=== PATIENT | female | born 1970 | race Caucasian/White ===

== ENCOUNTER 2017-09-14 10:12 | Inpatient (IN) | payer OTHER ==
[2017-09-14] MEDS ORDERED: LIDOCAINE 4% CR (13:36)
[2017-09-14] MEDS: SODIUM CHLORIDE 0.9% 1L BAG IV* (14:14)
[2017-09-14] MEDS: CEFEPIME 2GM/50 ML (PMX) 50 ML IVPB (14:14)
[2017-09-14] MEDS: ONDANSETRON 4 MG INJ IV ×2 (14:20→17:44)
[2017-09-14] MEDS: HYDROmorphONE 1 MG/ML SYG IV ×2 (14:20→17:44)
[2017-09-14 14:29] LABS: ADD UMIC YES; UR ASCORBIC ACID 20 mg/dL (NEGATIVE); UR BACTERIA FEW /HPF (NONE SEEN); UR BILIRUBIN (Dip) NEGATIVE (NEGATIVE); UR BLOOD (Dip) 1+ mg/dL (NEGATIVE); UR CLARITY SLIGHTLY CLOUDY (CLEAR); UR COLOR YELLOW (YELLOW); UR GLUCOSE (Dip) NEGATIVE (NEGATIVE); UR KETONES (Dip) TRACE mg/dL (NEGATIVE); UR LEUKOCYTE ESTERASE (Dip) NEGATIVE Leu/ul (NEGATIVE); UR MUCUS MODERATE /HPF (NONE SEEN); UR NITRITE (Dip) NEGATIVE (NEGATIVE); UR RBC 15 /HPF (0-5); UR RENAL EPITHELIAL CELL FEW /HPF (NONE SEEN); UR SPECIFIC GRAVITY (Dip) 1.015 (1.003-1.030); UR SQUAMOUS EPITHELIAL CELL FEW /HPF (FEW); UR TOTAL PROTEIN (Dip) 1+ mg/dl (NEGATIVE); UR UROBILINOGEN (Dip) NEGATIVE (NEGATIVE); UR WBC 5 /HPF (0-5)
[2017-09-14] MEDS: VANCOMYCIN 1 GM (PMX) 250 ML IVPB (14:35)
[2017-09-14 14:44] LABS: ALANINE AMINOTRANSFERASE 34 IU/L (13-69); ALBUMIN/GLOBULIN RATIO 1.29; ALKALINE PHOSPHATASE 114 IU/L (42-121); ANION GAP 17 (8-16); ASPARTATE AMINO TRANSFERASE 17 IU/L (15-46); BILIRUBIN,INDIRECT 0.4 mg/dl (0-1.1); BILIRUBIN,TOTAL 0.4 mg/dl (0.2-1.3); BLOOD UREA NITROGEN 8 mg/dl (7-20); CALCIUM 9.2 mg/dl (8.4-10.2); CARBON DIOXIDE 24 mmol/L (21-31); CHLORIDE 100 mmol/L (97-110); CREATININE 0.57 mg/dl (0.44-1.00); GLUCOSE 116 mg/dl (70-220); SODIUM 138 mmol/L (135-144); TOTAL PROTEIN 7.1 g/dl (6.1-8.1)
[2017-09-14 14:45] LABS: LACTIC ACID 1.4 mmol/L (0.5-2.0)
[2017-09-14 14:47] LABS: ABNORMAL IP MESSAGE 1; HEMATOCRIT 19.9 % (37.0-47.0); HEMOGLOBIN 7.2 g/dl (12.0-16.0); MEAN CORPUSCULAR HEMOGLOBIN 30.8 pg (29.0-33.0); MEAN CORPUSCULAR HGB CONC 36.2 g/dl (32.0-37.0); RED BLOOD COUNT 2.34 10^6/ul (4.20-5.40); RED CELL DISTRIBUTION WIDTH 12.2 % (11.5-14.5)
[2017-09-14 14:47] LABS: WHITE BLOOD COUNT 1.1 10^3/ul (4.8-10.8)
[2017-09-14 14:52] LABS: POSITIVE DIFF @See below
[2017-09-14 14:55] LABS: ADD MAN DIFF? YES; POTASSIUM 2.7 mmol/L (3.5-5.1)
[2017-09-14 15:58] LABS: BAND NEUTROPHILS % (M) 3 % (0-4); EOSINOPHILS % (M) 1 % (0.0-7.0); LYMPHOCYTES # 0.9 10^3/ul (0.8-2.9); LYMPHOCYTES #M 0.9 10^3/ul (0.8-2.9); LYMPHOCYTES % (M) 85 % (15-51); MONOCYTE # 0.1 10^3/ul (0.3-0.9); MONOCYTES % (M) 5 % (0-11); REACTIVE LYMPHOCYTES% (M) 3 % (0-0); SEGMENTED NEUTROPHILS (M) % 3 % (39-77)
[2017-09-14 15:59] LABS: HYPOCHROMASIA 1+ (0-0)
[2017-09-14 16:04] LABS: PLATELET COUNT 1 10^3/UL (140-415)
[2017-09-14 16:59] LABS: LACTIC ACID 0.9 mmol/L (0.5-2.0)
[2017-09-14 18:15] LABS: LACTIC ACID 0.6 mmol/L (0.5-2.0)
[2017-09-14] MEDS ORDERED: SOD CHLORIDE 0.45% 1,000 ML IV (18:44)
[2017-09-14] MEDS ORDERED: NACL 0.9% 3 ML SYG IV (19:00)
[2017-09-14] MEDS ORDERED: ONDANSETRON 4 MG INJ IV (19:00)
[2017-09-14] MEDS ORDERED: NITROGLYCERIN (SL) 0.4 MG TAB SL (19:00)
[2017-09-14] MEDS ORDERED: ALBUTEROL/IPRATROPIUM (NEB) 3 ML AMP HHN (19:00)
[2017-09-14] MEDS ORDERED: NA PHOSPHATE/BIPHOS 133 ML ENEMA PR (19:00)
[2017-09-14] MEDS ORDERED: hydrALAzine 20 MG INJ IV (19:00)
[2017-09-14] MEDS: POTASSIUM CHLORIDE 100 ML IVPB (19:16)
[2017-09-14] MEDS ORDERED: GLUCOSE GEL 15 GRAM TUBE PO ×2 (19:30)
[2017-09-14] MEDS ORDERED: LIDOCAINE 2% VISC 15 ML CUP PO (19:30)
[2017-09-14] MEDS ORDERED: DEXTROSE 50% 50 ML SYRINGE IV ×2 (19:30)
[2017-09-14] MEDS ORDERED: GLUCOSE GEL 15 GRAM TUBE BUCCAL (19:30)
[2017-09-14] MEDS: HYPOGLYCEMIA PROTOCOL when Glucose is <70 mg/dL or symptomatic <90 mg/dL. XX (19:30)
[2017-09-14] MEDS: Discontinue current oral sulfonylureas (glyburide, glipizide, and/or glimepiride) prior to XX (19:30)
[2017-09-14] MEDS ORDERED: GLUCAGON 1 MG INJ IM (19:30)
[2017-09-14 19:46] LABS: FREE T4 (FREE THYROXINE) 1.85 ng/dl (0.64-1.79)
[2017-09-14 19:50] LABS: INR 0.95; PARTIAL THROMBOPLASTIN TIME 56.5 Sec (25.0-35.0); PROTIME 12.8 Sec (11.9-14.9)
[2017-09-14] MEDS: INSULIN ASPART [NOVOLOG] 3 ML PEN SC (21:00)
[2017-09-14] MEDS: FAMOTIDINE 20 MG TAB PO (21:00)
[2017-09-14] MEDS: GUAIFENESIN 20 MG/ML 5ML CUP PO (21:53)
[2017-09-14 23:34] LABS: TYPE AND SCREEN 1
[2017-09-14] MEDS: morphine 2 MG INJ IV (23:46)
[2017-09-14] MEDS: SOD CHLORIDE 0.9% 1,000 ML IV (23:47)
[2017-09-15] MEDS: INSULIN ASPART [NOVOLOG] 3 ML PEN SC ×5 (00:18→17:00)
[2017-09-15] MEDS: LORAZEPAM 0.5 MG TAB PO (00:42)
[2017-09-15] MEDS: ACCU-CHEK XX (02:00)
[2017-09-15] MEDS: DIPHENHYDRAMINE 50 MG INJ IV (02:37)
[2017-09-15] MEDS: ACETAMINOPHEN 325 MG TAB PO ×2 (02:37→23:56)
[2017-09-15] MEDS: ONDANSETRON 4 MG INJ IV (02:37)
[2017-09-15] MEDS: morphine 2 MG INJ IV ×3 (03:39→21:54)
[2017-09-15] MEDS: LABETALOL HCL 20MG INJ IV (04:43)
[2017-09-15 05:00] LABS: ABNORMAL IP MESSAGE 1; HEMATOCRIT 19.2 % (37.0-47.0); MEAN CORPUSCULAR HEMOGLOBIN 30.5 pg (29.0-33.0); MEAN CORPUSCULAR HGB CONC 35.9 g/dl (32.0-37.0); MEAN PLATELET VOLUME 11.7 fl (7.4-10.4); PLATELET COUNT 86 10^3/UL (140-415); RED BLOOD COUNT 2.26 10^6/ul (4.20-5.40); RED CELL DISTRIBUTION WIDTH 12.4 % (11.5-14.5)
[2017-09-15 05:00] LABS: WHITE BLOOD COUNT 0.7 10^3/ul (4.8-10.8)
[2017-09-15 05:11] LABS: ADD MAN DIFF? YES; HEMOGLOBIN 6.9 g/dl (12.0-16.0); POSITIVE DIFF @See below
[2017-09-15] MEDS: SOD CHLORIDE 0.9% 250 ML IV* (05:16)
[2017-09-15 05:33] LABS: ANION GAP 14 (8-16); BLOOD UREA NITROGEN 9 mg/dl (7-20); CALCIUM 7.8 mg/dl (8.4-10.2); CARBON DIOXIDE 27 mmol/L (21-31); CHLORIDE 99 mmol/L (97-110); CREATININE 0.69 mg/dl (0.44-1.00); GLUCOSE 152 mg/dl (70-220); PHOSPHORUS 2.6 mg/dl (2.5-4.9); SODIUM 137 mmol/L (135-144)
[2017-09-15 05:42] LABS: CHOL/HDL RATIO 4.1 RATIO; HDL CHOLESTEROL 33 mg/dl (34-88); LDL CHOLESTEROL,CALCULATED 79 mg/dl; POTASSIUM 2.5 mmol/L (3.5-5.1); TRIGLYCERIDES 120 mg/dl (0-149)
[2017-09-15 05:42] LABS: CHOLESTEROL 136 mg/dl (100-200)
[2017-09-15 05:44] LABS: MAGNESIUM 0.8 mg/dl (1.7-2.5)
[2017-09-15 06:49] LABS: THYROID STIMULATING HORMONE 0.804 MIU/L (0.465-4.680)
[2017-09-15 07:09] LABS: HEMOGLOBIN A1C 5.9 % (0-5.9)
[2017-09-15] MEDS: PIPER-TAZO 3.375 GM IV (PMX) 100 ML IVPB ×2 (07:12→13:22)
[2017-09-15] MEDS: MAGNESIUM SULFATE 6 GM in DEXTROSE 5% 150 ML IVPB (07:13)
[2017-09-15] MEDS: POTASSIUM CHLORIDE 100 ML IVPB ×4 (07:13→13:24)
[2017-09-15 07:39] LABS: BAND NEUTROPHILS % (M) 1 % (0-4); EOSINOPHILS % (M) 1 % (0-7); LYMPHOCYTES #M 0.6 10^3/ul (0.8-2.9); LYMPHOCYTES % (M) 89 % (15-51); MONOCYTES % (M) 7 % (0-11); PLATELET ESTIMATE DECREASED; POLYCHROMASIA 2+ (0-0); SEGMENTED NEUTROPHILS (M) % 2 % (39-77); SMUDGE%M 14 % (0-0)
[2017-09-15 08:25] LABS: IMMEDIATE SPIN CROSSMATCH 1 2
[2017-09-15] MEDS: ACETAMINOPHEN 500 MG TAB PO (08:33)
[2017-09-15] MEDS: DIPHENHYDRAMINE 25 MG CAP PO (08:34)
[2017-09-15] MEDS: NORepinephrine 8MG/250 ML (PMX 250 ML IV (11:20)
[2017-09-15] MEDS: FILGRASTIM 480 MCG INJ SC (13:23)
[2017-09-15] MEDS: GUAIFENESIN 20 MG/ML 5ML CUP PO ×2 (15:51→22:26)
[2017-09-15] MEDS ORDERED: VANCOMYCIN IV PER PHARMACY XX (16:30)
[2017-09-15] MEDS: VANCOMYCIN 1 GM in 250 ML IVPB (17:21)
[2017-09-15] MEDS: MEROPENEM 500MG/50 ML (PMX) 50 ML IVPB ×2 (18:45→23:57)
[2017-09-15] MEDS: DEXTROSE 5%-0.45% NACL 1,000 ML IV (22:28)
[2017-09-16] MEDS: INSULIN ASPART [NOVOLOG] 3 ML PEN SC ×7 (00:03→20:08)
[2017-09-16] MEDS: CEPASTAT LOZENGE MT ×5 (00:33→20:05)
[2017-09-16] MEDS: ACCU-CHEK XX (01:54)
[2017-09-16] MEDS: morphine 2 MG INJ IV ×3 (03:58→13:15)
[2017-09-16] MEDS: GUAIFENESIN 20 MG/ML 5ML CUP PO ×2 (04:59→08:49)
[2017-09-16] MEDS: LORAZEPAM 0.5 MG TAB PO ×2 (04:59→12:30)
[2017-09-16] MEDS ORDERED: VANCOMYCIN 500MG/NS (PMX) 100 ML IVPB (05:00)
[2017-09-16] MEDS: MEROPENEM 500MG/50 ML (PMX) 50 ML IVPB ×3 (05:08→22:12)
[2017-09-16 06:04] LABS: WHITE BLOOD COUNT 2.3 10^3/ul (4.8-10.8)
[2017-09-16 06:04] LABS: ABNORMAL IP MESSAGE 1; HEMATOCRIT 26.9 % (37.0-47.0); HEMOGLOBIN 9.4 g/dl (12.0-16.0); MEAN CORPUSCULAR HEMOGLOBIN 29.4 pg (29.0-33.0); MEAN CORPUSCULAR HGB CONC 34.9 g/dl (32.0-37.0); MEAN CORPUSCULAR VOLUME 84.1 fl (82.0-101.0); MEAN PLATELET VOLUME 11.8 fl (7.4-10.4); PLATELET COUNT 63 10^3/UL (140-415)
[2017-09-16 06:21] LABS: MAGNESIUM 1.4 mg/dl (1.7-2.5)
[2017-09-16 06:21] LABS: PHOSPHORUS 3.1 mg/dl (2.5-4.9)
[2017-09-16 06:29] LABS: ADD MAN DIFF? YES; POSITIVE DIFF @See below
[2017-09-16 06:36] LABS: ANION GAP 11 (8-16); BLOOD UREA NITROGEN 7 mg/dl (7-20); CALCIUM 8.3 mg/dl (8.4-10.2); CARBON DIOXIDE 27 mmol/L (21-31); CHLORIDE 101 mmol/L (97-110); GLUCOSE 193 mg/dl (70-220); SODIUM 136 mmol/L (135-144)
[2017-09-16 06:54] LABS: POTASSIUM 2.8 mmol/L (3.5-5.1)
[2017-09-16] MEDS ORDERED: POTASSIUM CHLORIDE 100 ML IVPB (08:00)
[2017-09-16] MEDS: POTASSIUM CHLORIDE (SR) 20 MEQ TAB PO ×2 (08:49→12:30)
[2017-09-16] MEDS: HYDROCODONE/APAP (5/325) TAB PO (08:50)
[2017-09-16] MEDS: VANCOMYCIN 500MG/NS (PMX) 100 ML IVPB ×2 (08:51)
[2017-09-16] MEDS: SOD CHLORIDE 0.9% 250 ML IV (08:57)
[2017-09-16] MEDS: DEXTROSE 5%-0.45% NACL 1,000 ML IV ×2 (08:57→17:59)
[2017-09-16 10:38] LABS: ANISOCYTOSIS 1+ (0-0); BAND NEUTROPHILS #M 0.1 10^3/ul (0.0-0.6); BAND NEUTROPHILS % (M) 6 % (0-4); BURR CELLS 1+ (0-0); ERYTHROBLAST% (NRBC) (M) 1 % (0-0); GIANT THROMBO% (M) 3 % (0-0); LYMPHOCYTES #M 1.5 10^3/ul (0.8-2.9); LYMPHOCYTES % (M) 69 % (15-51); METAMYELOCYTES %M 1 % (0-0); MONOCYTE #M 0.2 10^3/ul (0.3-0.9); MONOCYTES % (M) 13 % (0-11); PLATELET ESTIMATE DECREASED; POIKILOCYTOSIS 1+ (0-0); POLYCHROMASIA 1+ (0-0); REACTIVE LYMPHOCYTES #M 0.2 10^3/ul (0.0-0.0); REACTIVE LYMPHOCYTES% (M) 9 % (0-0); SEGMENTED NEUTROPHILS (M) % 2 % (39-77); SMUDGE%M 13 % (0-0); TEAR DROP CELLS 1+ (0-0)
[2017-09-16] MEDS: MAGNESIUM SULFATE 3 GM in DEXTROSE 5% 100 ML IVPB (12:30)
[2017-09-16 12:41] LABS: PATH REVIEW CH
[2017-09-16] MEDS: ACETAMINOPHEN 325 MG TAB PO (14:35)
[2017-09-16] MEDS: FLUCONAZOLE 100 MG TAB PO (14:39)
[2017-09-16 14:53] LABS: POTASSIUM 3.6 mmol/L (3.5-5.1)
[2017-09-16] MEDS: ONDANSETRON 4 MG INJ IV ×2 (14:58→18:45)
[2017-09-16] MEDS: LORAZEPAM 2 MG INJ IV ×2 (15:43→18:55)
[2017-09-16 17:06] LABS: VANCOMYCIN,TROUGH 8.2 ug/ml (10.0-20.0)
[2017-09-16] MEDS: NYSTATIN SUSP 5 ML CUP PO ×2 (17:47→20:04)
[2017-09-16] MEDS: METOCLOPRAMIDE 10 MG INJ IV (22:08)
[2017-09-16] MEDS: VANCOMYCIN 750 MG in DEXTROSE 5% 150 ML IVPB (22:12)
[2017-09-17] MEDS: INSULIN ASPART [NOVOLOG] 3 ML PEN SC ×5 (01:20→17:00)
[2017-09-17] MEDS: ACCU-CHEK XX (01:21)
[2017-09-17] MEDS: MEROPENEM 500MG/50 ML (PMX) 50 ML IVPB ×3 (05:03→21:53)
[2017-09-17] MEDS: DEXTROSE 5%-0.45% NACL 1,000 ML IV (05:03)
[2017-09-17] MEDS: CEPASTAT LOZENGE MT ×3 (05:12→14:43)
[2017-09-17 05:30] LABS: WHITE BLOOD COUNT 2.9 10^3/ul (4.8-10.8)
[2017-09-17 05:30] LABS: ABNORMAL IP MESSAGE 1; HEMATOCRIT 27.9 % (37.0-47.0); MEAN CORPUSCULAR HGB CONC 35.8 g/dl (32.0-37.0); MEAN CORPUSCULAR VOLUME 83.8 fl (82.0-101.0); MEAN PLATELET VOLUME 11.3 fl (7.4-10.4); PLATELET COUNT 60 10^3/UL (140-415); RED BLOOD COUNT 3.33 10^6/ul (4.20-5.40); RED CELL DISTRIBUTION WIDTH 12.9 % (11.5-14.5)
[2017-09-17 05:49] LABS: ALANINE AMINOTRANSFERASE 25 IU/L (13-69); ALBUMIN 3.3 g/dl (3.3-4.9); ALKALINE PHOSPHATASE 81 IU/L (42-121); ANION GAP 9 (8-16); ASPARTATE AMINO TRANSFERASE 11 IU/L (15-46); BILIRUBIN,INDIRECT 0.1 mg/dl (0-1.1); BILIRUBIN,TOTAL 0.1 mg/dl (0.2-1.3); CALCIUM 9.4 mg/dl (8.4-10.2); CARBON DIOXIDE 32 mmol/L (21-31); CHLORIDE 100 mmol/L (97-110); CREATININE 0.47 mg/dl (0.44-1.00); GLUCOSE 115 mg/dl (70-220); SODIUM 138 mmol/L (135-144); TOTAL PROTEIN 6.3 g/dl (6.1-8.1)
[2017-09-17] MEDS: METOCLOPRAMIDE 10 MG INJ IV ×2 (05:49→22:36)
[2017-09-17 05:53] LABS: BLOOD UREA NITROGEN < 2 mg/dl (7-20)
[2017-09-17 05:54] LABS: ADD MAN DIFF? YES; POSITIVE DIFF @See below
[2017-09-17] MEDS: VANCOMYCIN 750 MG in DEXTROSE 5% 150 ML IVPB ×3 (06:38→23:30)
[2017-09-17] MEDS: FLUCONAZOLE 100 MG TAB PO (08:01)
[2017-09-17] MEDS: NYSTATIN SUSP 5 ML CUP PO ×4 (08:01→21:49)
[2017-09-17 09:29] LABS: BAND NEUTROPHILS #M 0.2 10^3/ul (0.0-0.6); BAND NEUTROPHILS % (M) 8 % (0-4); EOSINOPHILS % (M) 2 % (0-7); LYMPHOCYTES #M 1.7 10^3/ul (0.8-2.9); LYMPHOCYTES % (M) 59 % (15-51); MONOCYTE #M 0.6 10^3/ul (0.3-0.9); MONOCYTES % (M) 23 % (0-11); PLATELET ESTIMATE DECREASED; POLYCHROMASIA 1+ (0-0); REACTIVE LYMPHOCYTES% (M) 3 % (0-0); SEG NEUT #M 0.2 10^3/ul (1.6-7.5); SEGMENTED NEUTROPHILS (M) % 5 % (39-77); SMUDGE%M 30 % (0-0)
[2017-09-17] MEDS: POTASSIUM CHLORIDE (SR) 20 MEQ TAB PO (10:20)
[2017-09-17] MEDS: GUAIFENESIN 20 MG/ML 5ML CUP PO ×3 (12:26→22:36)
[2017-09-17] MEDS ORDERED: INSULIN ASPART [NOVOLOG] 3 ML PEN SC (21:00)
[2017-09-17] MEDS: Insulin NOVOLOG SS MILD Algorithm (SS with meals and bedtime) SC (21:00)
[2017-09-17] MEDS: LORAZEPAM 0.5 MG TAB PO (21:55)
[2017-09-17] MEDS: morphine LIQ (10 MG/5 ML) CUP PO (22:18)
[2017-09-18] MEDS: ACCUCHECK AT 2AM (Patients on SS coverage) XX (01:10)
[2017-09-18] MEDS: MEROPENEM 500MG/50 ML (PMX) 50 ML IVPB (05:05)
[2017-09-18] MEDS: morphine 2 MG INJ IV ×2 (05:23→15:26)
[2017-09-18 07:12] LABS: ABNORMAL IP MESSAGE 1; HEMATOCRIT 29.6 % (37.0-47.0); HEMOGLOBIN 10.4 g/dl (12.0-16.0); MEAN CORPUSCULAR HEMOGLOBIN 29.9 pg (29.0-33.0); MEAN CORPUSCULAR HGB CONC 35.1 g/dl (32.0-37.0); MEAN CORPUSCULAR VOLUME 85.1 fl (82.0-101.0); MEAN PLATELET VOLUME 11.5 fl (7.4-10.4); PLATELET COUNT 82 10^3/UL (140-415); RED BLOOD COUNT 3.48 10^6/ul (4.20-5.40)
[2017-09-18 07:12] LABS: WHITE BLOOD COUNT 2.9 10^3/ul (4.8-10.8)
[2017-09-18 07:13] LABS: ADD MAN DIFF? YES; POSITIVE DIFF @See below
[2017-09-18 07:35] LABS: ANION GAP 13 (8-16); BLOOD UREA NITROGEN 8 mg/dl (7-20); CALCIUM 8.9 mg/dl (8.4-10.2); CARBON DIOXIDE 31 mmol/L (21-31); CHLORIDE 99 mmol/L (97-110); CREATININE 0.52 mg/dl (0.44-1.00); GLUCOSE 107 mg/dl (70-220); POTASSIUM 3.2 mmol/L (3.5-5.1); SODIUM 140 mmol/L (135-144)
[2017-09-18 07:36] LABS: VANCOMYCIN,TROUGH 18.5 ug/ml (10.0-20.0)
[2017-09-18] MEDS: ACETAMINOPHEN 325 MG TAB PO (07:53)
[2017-09-18] MEDS: LORAZEPAM 2 MG INJ IV ×2 (07:58→20:09)
[2017-09-18] MEDS: METOCLOPRAMIDE 10 MG INJ IV ×2 (08:02→13:17)
[2017-09-18] MEDS: FLUCONAZOLE 100 MG TAB PO (08:02)
[2017-09-18] MEDS: NYSTATIN SUSP 5 ML CUP PO ×4 (08:02→20:59)
[2017-09-18] MEDS: Insulin NOVOLOG SS MILD Algorithm (SS with meals and bedtime) SC ×4 (08:54→21:00)
[2017-09-18] MEDS: VANCOMYCIN 500MG/NS (PMX) 100 ML IVPB ×2 (09:56→17:22)
[2017-09-18 10:12] LABS: BAND NEUTROPHILS #M 0.4 10^3/ul (0.0-0.6); BAND NEUTROPHILS % (M) 15 % (0-4); EOSINOPHILS % (M) 1 % (0-7); LYMPHOCYTES #M 0.7 10^3/ul (0.8-2.9); LYMPHOCYTES % (M) 26 % (15-51); MONOCYTE #M 1.1 10^3/ul (0.3-0.9); MONOCYTES % (M) 38 % (0-11); PLATELET ESTIMATE DECREASED; POIKILOCYTOSIS 2+ (0-0); PROMYELOCYTES % (M) 1 % (0-0); REACTIVE LYMPHOCYTES% (M) 2 % (0-0); SEG NEUT #M 0.5 10^3/ul (1.6-7.5); SEGMENTED NEUTROPHILS (M) % 17 % (39-77); SMUDGE%M 47 % (0-0)
[2017-09-18] MEDS: LEVOFLOXACIN 500 MG TAB PO (13:14)
[2017-09-18] MEDS: ONDANSETRON 4 MG INJ IV (16:16)
[2017-09-19] MEDS: VANCOMYCIN 500MG/NS (PMX) 100 ML IVPB ×3 (00:43→17:24)
[2017-09-19] MEDS: ACCUCHECK AT 2AM (Patients on SS coverage) XX (02:00)
[2017-09-19] MEDS: GUAIFENESIN 20 MG/ML 5ML CUP PO ×2 (02:05→17:29)
[2017-09-19] MEDS: CEPASTAT LOZENGE MT ×4 (02:07→17:29)
[2017-09-19 05:20] LABS: ADD MAN DIFF? NO
[2017-09-19 05:28] LABS: ABNORMAL IP MESSAGE 1; BASOPHILS % 0.3 % (0.0-2.0); EOSINOPHILS % 0.6 % (0.0-7.0); HEMATOCRIT 30.6 % (37.0-47.0); HEMOGLOBIN 10.7 g/dl (12.0-16.0); LYMPHOCYTES # 1.9 10^3/ul (0.8-2.9); MEAN CORPUSCULAR HEMOGLOBIN 29.8 pg (29.0-33.0); MEAN CORPUSCULAR VOLUME 85.2 fl (82.0-101.0); MEAN PLATELET VOLUME 10.3 fl (7.4-10.4); NEUTROPHIL # 0.4 10^3/ul (1.6-7.5); NEUTROPHILS % 11.3 % (39.0-77.0); PLATELET COUNT 117 10^3/UL (140-415); RED BLOOD COUNT 3.59 10^6/ul (4.20-5.40); RED CELL DISTRIBUTION WIDTH 12.7 % (11.5-14.5)
[2017-09-19 05:28] LABS: WHITE BLOOD COUNT 3.4 10^3/ul (4.8-10.8)
[2017-09-19] MEDS: LEVOFLOXACIN 500 MG TAB PO (05:39)
[2017-09-19 05:48] LABS: INR 0.97; LYMPHOCYTES % 55.5 % (15.0-51.0); POSITIVE DIFF @See below
[2017-09-19 06:00] LABS: ALANINE AMINOTRANSFERASE 32 IU/L (13-69); ALBUMIN 3.8 g/dl (3.3-4.9); ALBUMIN/GLOBULIN RATIO 1.26; ALKALINE PHOSPHATASE 98 IU/L (42-121); ANION GAP 13 (8-16); ASPARTATE AMINO TRANSFERASE 18 IU/L (15-46); BLOOD UREA NITROGEN 10 mg/dl (7-20); CALCIUM 9.1 mg/dl (8.4-10.2); CARBON DIOXIDE 31 mmol/L (21-31); CHLORIDE 100 mmol/L (97-110); CREATININE 0.53 mg/dl (0.44-1.00); GLUCOSE 102 mg/dl (70-220); POTASSIUM 3.3 mmol/L (3.5-5.1); SODIUM 141 mmol/L (135-144); TOTAL PROTEIN 6.8 g/dl (6.1-8.1)
[2017-09-19] MEDS: ONDANSETRON 4 MG INJ IV ×2 (06:55→20:39)
[2017-09-19] MEDS: LORAZEPAM 2 MG INJ IV ×2 (07:00→20:47)
[2017-09-19] MEDS: Insulin NOVOLOG SS MILD Algorithm (SS with meals and bedtime) SC ×4 (07:20→20:43)
[2017-09-19] MEDS: NYSTATIN SUSP 5 ML CUP PO ×4 (08:55→20:39)
[2017-09-19] MEDS: FLUCONAZOLE 100 MG TAB PO (08:55)
[2017-09-19] MEDS: morphine 2 MG INJ IV ×2 (10:37→18:50)
[2017-09-19] MEDS: METOCLOPRAMIDE 10 MG INJ IV (12:05)
[2017-09-20] MEDS: VANCOMYCIN 500MG/NS (PMX) 100 ML IVPB (00:20)
[2017-09-20] MEDS: morphine 2 MG INJ IV ×5 (00:24→17:35)
[2017-09-20] MEDS: ACCUCHECK AT 2AM (Patients on SS coverage) XX (01:44)
[2017-09-20] MEDS: LEVOFLOXACIN 500 MG TAB PO (05:36)
[2017-09-20] MEDS: LORAZEPAM 2 MG INJ IV ×4 (05:41→23:49)
[2017-09-20] MEDS: Insulin NOVOLOG SS MILD Algorithm (SS with meals and bedtime) SC ×4 (08:39→21:00)
[2017-09-20 08:44] LABS: ADD MAN DIFF? NO
[2017-09-20 08:53] LABS: WHITE BLOOD COUNT 3.2 10^3/ul (4.8-10.8)
[2017-09-20 08:53] LABS: ABNORMAL IP MESSAGE 1; BASOPHILS % 0.3 % (0.0-2.0); EOSINOPHILS % 0.3 % (0.0-7.0); HEMATOCRIT 31.6 % (37.0-47.0); HEMOGLOBIN 10.9 g/dl (12.0-16.0); LYMPHOCYTES # 1.8 10^3/ul (0.8-2.9); LYMPHOCYTES % 56.2 % (15.0-51.0); MEAN CORPUSCULAR HEMOGLOBIN 29.5 pg (29.0-33.0); MEAN CORPUSCULAR HGB CONC 34.5 g/dl (32.0-37.0); MEAN CORPUSCULAR VOLUME 85.6 fl (82.0-101.0); MEAN PLATELET VOLUME 9.4 fl (7.4-10.4); MONOCYTE # 0.7 10^3/ul (0.3-0.9); MONOCYTES % 21.7 % (0.0-11.0); NEUTROPHIL # 0.5 10^3/ul (1.6-7.5); NEUTROPHILS % 16.8 % (39.0-77.0); PLATELET COUNT 165 10^3/UL (140-415); RED BLOOD COUNT 3.69 10^6/ul (4.20-5.40); RED CELL DISTRIBUTION WIDTH 12.8 % (11.5-14.5)
[2017-09-20] MEDS: CEPASTAT LOZENGE MT ×2 (08:54→17:41)
[2017-09-20] MEDS: FLUCONAZOLE 100 MG TAB PO (08:54)
[2017-09-20] MEDS: NYSTATIN SUSP 5 ML CUP PO ×4 (08:54→21:12)
[2017-09-20] MEDS: ONDANSETRON 4 MG INJ IV (08:56)
[2017-09-20 09:03] LABS: POSITIVE DIFF @See below
[2017-09-20 09:17] LABS: VANCOMYCIN,TROUGH 28.3 ug/ml (10.0-20.0)
[2017-09-20 09:32] LABS: ANION GAP 15 (8-16); BLOOD UREA NITROGEN 12 mg/dl (7-20); CARBON DIOXIDE 30 mmol/L (21-31); CHLORIDE 100 mmol/L (97-110); CREATININE 0.53 mg/dl (0.44-1.00); GLUCOSE 86 mg/dl (70-220); POTASSIUM 3.4 mmol/L (3.5-5.1); SODIUM 142 mmol/L (135-144)
[2017-09-20] MEDS: POTASSIUM CHLORIDE (SR) 20 MEQ TAB PO (17:34)
[2017-09-21] MEDS: ACCUCHECK AT 2AM (Patients on SS coverage) XX (01:18)
[2017-09-21 05:24] LABS: ADD MAN DIFF? NO
[2017-09-21 05:29] LABS: WHITE BLOOD COUNT 4.8 10^3/ul (4.8-10.8)
[2017-09-21 05:29] LABS: BASOPHILS % 0.4 % (0.0-2.0); EOSINOPHILS % 0.2 % (0.0-7.0); HEMATOCRIT 31.9 % (37.0-47.0); LYMPHOCYTES # 1.9 10^3/ul (0.8-2.9); LYMPHOCYTES % 39.4 % (15.0-51.0); MEAN CORPUSCULAR HEMOGLOBIN 29.6 pg (29.0-33.0); MEAN CORPUSCULAR HGB CONC 34.5 g/dl (32.0-37.0); MEAN PLATELET VOLUME 9.5 fl (7.4-10.4); MONOCYTE # 1.3 10^3/ul (0.3-0.9); MONOCYTES % 26.6 % (0.0-11.0); NEUTROPHIL # 1.4 10^3/ul (1.6-7.5); NEUTROPHILS % 28.6 % (39.0-77.0); PLATELET COUNT 265 10^3/UL (140-415); RED BLOOD COUNT 3.71 10^6/ul (4.20-5.40); RED CELL DISTRIBUTION WIDTH 12.7 % (11.5-14.5)
[2017-09-21 06:04] LABS: PHOSPHORUS 4.3 mg/dl (2.5-4.9)
[2017-09-21 06:12] LABS: MAGNESIUM 0.9 mg/dl (1.7-2.5)
[2017-09-21 06:16] LABS: ANION GAP 17 (8-16); BLOOD UREA NITROGEN 16 mg/dl (7-20); CARBON DIOXIDE 31 mmol/L (21-31); CHLORIDE 98 mmol/L (97-110); CREATININE 0.51 mg/dl (0.44-1.00); GLUCOSE 108 mg/dl (70-220); POTASSIUM 3.6 mmol/L (3.5-5.1); SODIUM 142 mmol/L (135-144)
[2017-09-21] MEDS: LEVOFLOXACIN 500 MG TAB PO (06:31)
[2017-09-21] MEDS: LORAZEPAM 2 MG INJ IV (06:31)
[2017-09-21] MEDS: MAGNESIUM SULFATE 2 GM/50 ML 50 ML IVPB (07:07)
[2017-09-21] MEDS: Insulin NOVOLOG SS MILD Algorithm (SS with meals and bedtime) SC ×4 (07:20→20:50)
[2017-09-21] MEDS: NYSTATIN SUSP 5 ML CUP PO ×4 (08:46→20:26)
[2017-09-21] MEDS: CEPASTAT LOZENGE MT ×2 (08:50→20:43)
[2017-09-21] MEDS: morphine 2 MG INJ IV ×3 (08:50→20:26)
[2017-09-21] MEDS ORDERED: VANCOMYCIN 500MG/NS (PMX) 100 ML IVPB (09:00)
[2017-09-21] MEDS: HYDROCODONE/APAP (5/325) TAB PO (09:46)
[2017-09-21] MEDS: LORAZEPAM 0.5 MG TAB PO ×2 (12:19→17:56)
[2017-09-21] MEDS: ONDANSETRON 4 MG INJ IV ×2 (12:19→20:43)
[2017-09-21] MEDS ORDERED: VANCOMYCIN IV PER PHARMACY XX (18:00)
[2017-09-21] MEDS: VANCOMYCIN 500MG/NS (PMX) 100 ML IVPB (20:26)
[2017-09-22] MEDS: morphine 2 MG INJ IV ×6 (00:20→20:52)
[2017-09-22] MEDS: LORAZEPAM 0.5 MG TAB PO ×2 (00:30→22:00)
[2017-09-22] MEDS: ACCUCHECK AT 2AM (Patients on SS coverage) XX (01:34)
[2017-09-22] MEDS: ONDANSETRON 4 MG INJ IV ×3 (04:38→21:10)
[2017-09-22 05:36] LABS: ADD MAN DIFF? NO
[2017-09-22 05:43] LABS: WHITE BLOOD COUNT 4.9 10^3/ul (4.8-10.8)
[2017-09-22 05:43] LABS: ABNORMAL IP MESSAGE 1; EOSINOPHILS % 0.6 % (0.0-7.0); HEMATOCRIT 27.9 % (37.0-47.0); HEMOGLOBIN 9.6 g/dl (12.0-16.0); LYMPHOCYTES # 2.1 10^3/ul (0.8-2.9); LYMPHOCYTES % 42.3 % (15.0-51.0); MEAN CORPUSCULAR HEMOGLOBIN 29.6 pg (29.0-33.0); MEAN CORPUSCULAR HGB CONC 34.4 g/dl (32.0-37.0); MEAN CORPUSCULAR VOLUME 86.1 fl (82.0-101.0); MEAN PLATELET VOLUME 9.2 fl (7.4-10.4); MONOCYTE # 1.1 10^3/ul (0.3-0.9); MONOCYTES % 23.3 % (0.0-11.0); NEUTROPHIL # 1.4 10^3/ul (1.6-7.5); NEUTROPHILS % 28.4 % (39.0-77.0); PLATELET COUNT 349 10^3/UL (140-415); RED BLOOD COUNT 3.24 10^6/ul (4.20-5.40); RED CELL DISTRIBUTION WIDTH 12.7 % (11.5-14.5)
[2017-09-22 06:13] LABS: POSITIVE DIFF @See below
[2017-09-22 06:28] LABS: PHOSPHORUS 3.9 mg/dl (2.5-4.9)
[2017-09-22 06:28] LABS: MAGNESIUM 1.1 mg/dl (1.7-2.5)
[2017-09-22] MEDS: LEVOFLOXACIN 500 MG TAB PO (06:43)
[2017-09-22] MEDS: VANCOMYCIN 500MG/NS (PMX) 100 ML IVPB ×2 (06:43→20:51)
[2017-09-22 07:02] LABS: ANION GAP 15 (8-16); BLOOD UREA NITROGEN 12 mg/dl (7-20); CALCIUM 8.3 mg/dl (8.4-10.2); CARBON DIOXIDE 28 mmol/L (21-31); CHLORIDE 102 mmol/L (97-110); CREATININE 0.53 mg/dl (0.44-1.00); GLUCOSE 102 mg/dl (70-220); POTASSIUM 3.2 mmol/L (3.5-5.1); SODIUM 142 mmol/L (135-144)
[2017-09-22] MEDS: Insulin NOVOLOG SS MILD Algorithm (SS with meals and bedtime) SC ×4 (07:20→21:00)
[2017-09-22] MEDS: METOCLOPRAMIDE 10 MG INJ IV (08:34)
[2017-09-22] MEDS: NYSTATIN SUSP 5 ML CUP PO ×4 (09:00→20:56)
[2017-09-22] MEDS: CEPASTAT LOZENGE MT ×2 (12:21→18:10)
[2017-09-22] MEDS ORDERED: HYDROCODONE/APAP (5/325) TAB PO (13:00)
[2017-09-22] MEDS ORDERED: LIDOCAINE 1%/EPI 30 ML INJ (13:53)
[2017-09-22] MEDS: MAGNESIUM SULFATE 3 GM in DEXTROSE 5% 100 ML IVPB (15:00)
[2017-09-22] MEDS: HYDROCODONE/APAP (5/325) TAB PO (15:06)
[2017-09-22] MEDS: POTASSIUM CHLORIDE 100 ML IVPB ×2 (18:02→23:10)
[2017-09-22] MEDS: DOXYCYCLINE 100 MG TAB PO (20:56)
[2017-09-22] MEDS: DOCUSATE SODIUM 100 MG CAP PO (22:03)
[2017-09-22] MEDS: MAGNESIUM HYDROXIDE 30ML CUP PO (23:07)
[2017-09-23] MEDS: morphine 2 MG INJ IV ×4 (01:11→12:56)
[2017-09-23] MEDS: METOCLOPRAMIDE 10 MG INJ IV ×2 (01:17→09:33)
[2017-09-23] MEDS: CEPASTAT LOZENGE MT ×2 (01:22→05:22)
[2017-09-23] MEDS: ACCUCHECK AT 2AM (Patients on SS coverage) XX (01:30)
[2017-09-23] MEDS: ONDANSETRON 4 MG INJ IV ×2 (05:11→12:55)
[2017-09-23] MEDS: LEVOFLOXACIN 500 MG TAB PO (05:17)
[2017-09-23 05:48] LABS: VANCOMYCIN,TROUGH 9.1 ug/ml (10.0-20.0)
[2017-09-23] MEDS: VANCOMYCIN 500MG/NS (PMX) 100 ML IVPB (08:24)
[2017-09-23] MEDS: DOXYCYCLINE 100 MG TAB PO (08:25)
[2017-09-23] MEDS: NYSTATIN SUSP 5 ML CUP PO ×2 (08:25→12:55)
[2017-09-23] MEDS: LORAZEPAM 0.5 MG TAB PO (09:04)
[2017-09-23] MEDS: Insulin NOVOLOG SS MILD Algorithm (SS with meals and bedtime) SC ×2 (09:04→11:10)
[2017-09-23] MEDS: HYDROmorphONE 0.5 MG/0.5 ML SYG IV ×2 (11:35→15:41)
[2017-09-23] MEDS ORDERED: VANCOMYCIN 750 MG in DEXTROSE 5% 150 ML IVPB (20:00)
== END 2017-09-23 17:05 | disposition home or self-care (01) | DRG 314 ==
LOC: MS1 09-17 13:06 → ICU 18:44 → E/R 10:12
PROC: 02PYX3Z Removal of Infusion Device from Great Vessel, External Approach (ICD-10-PCS; principal; 2017-09-22 13:52)
PROC: 0JPT0WZ Removal of Totally Implantable Vascular Access Device from Trunk Subcutaneous Tissue and Fascia, Open Approach (ICD-10-PCS; 2017-09-22 13:52)
PROC: 30243R1 Transfusion of Nonautologous Platelets into Central Vein, Percutaneous Approach (ICD-10-PCS; 2017-09-22 13:52)
PROC: 30243N1 Transfusion of Nonautologous Red Blood Cells into Central Vein, Percutaneous Approach (ICD-10-PCS; 2017-09-22 13:52)
DX: T80.211A Bloodstream infection due to central venous catheter, initial encounter (principal); A41.59 Other Gram-negative sepsis; R65.21 Severe sepsis with septic shock; D61.810 Antineoplastic chemotherapy induced pancytopenia; B37.0 Candidal stomatitis; C56.9 Malignant neoplasm of unspecified ovary; L03.114 Cellulitis of left upper limb; N39.0 Urinary tract infection, site not specified; I80.8 Phlebitis and thrombophlebitis of other sites; R11.2 Nausea with vomiting, unspecified; E11.9 Type 2 diabetes mellitus without complications; Y83.8 Other surgical procedures as the cause of abnormal reaction of the patient, or of later complication, without mention of misadventure at the time of the procedure; Y92.89 Other specified places as the place of occurrence of the external cause
CPT/HCPCS: 36415; 36430; 70450; 71045; 80048; 80053; 80061; 80202; 81001; 82962; 83036; 83605; 83735; 84100; 84132; 84439; 84443; 85025; 85610; 85730; 86644; 86850; 86900; 86901; 86920; 86945; 87040; 87081; 87086; 87400; 93005; 93970; 96365; 96366; 96372; 96375; 96376; 99291-25

== ENCOUNTER 2018-01-27 18:14 | Inpatient (IN) | payer OTHER ==
[2018-01-27] MEDS ORDERED: HYDROCODONE/APAP (5/325) TAB PO (19:00)
[2018-01-27] MEDS ORDERED: ALBUTEROL/IPRATROPIUM (NEB) 3 ML AMP HHN (19:00)
[2018-01-27] MEDS ORDERED: hydrALAzine 20 MG INJ IV (19:00)
[2018-01-27] MEDS ORDERED: NITROGLYCERIN (SL) 0.4 MG TAB SL (19:00)
[2018-01-27] MEDS ORDERED: NA PHOSPHATE/BIPHOS 133 ML ENEMA PR (19:00)
[2018-01-27] MEDS ORDERED: NACL 0.9% 3 ML SYG IV (19:00)
[2018-01-27] MEDS ORDERED: MAGNESIUM HYDROXIDE 30ML CUP PO (19:00)
[2018-01-27] MEDS ORDERED: DOCUSATE SODIUM 100 MG CAP PO (19:00)
[2018-01-27] MEDS: SOD CHLORIDE 0.45% 1,000 ML IV (19:44)
[2018-01-27] MEDS: ACETAMINOPHEN 325 MG TAB PO (19:54)
[2018-01-27] MEDS: morphine 2 MG INJ IV (19:55)
[2018-01-27 20:14] LABS: FREE T4 (FREE THYROXINE) 1.31 ng/dl (0.64-1.79)
[2018-01-27] MEDS: HEPARIN 5,000 UNIT/0.5 ML VIAL SC (21:46)
[2018-01-27] MEDS: DEXTROSE 5%-0.45% NACL 1,000 ML IV (21:46)
[2018-01-28] MEDS: ONDANSETRON 4 MG INJ IV ×3 (00:11→22:54)
[2018-01-28] MEDS: morphine 2 MG INJ IV ×7 (00:12→23:57)
[2018-01-28] MEDS: PANTOPRAZOLE 40 MG INJ IV (05:44)
[2018-01-28 06:26] LABS: ADD MAN DIFF? NO
[2018-01-28 06:35] LABS: WHITE BLOOD COUNT 11.7 10^3/ul (4.8-10.8)
[2018-01-28 06:35] LABS: BASOPHILS % 0.2 % (0.0-2.0); EOSINOPHILS % 0.3 % (0.0-7.0); HEMATOCRIT 26.2 % (37.0-47.0); HEMOGLOBIN 9.2 g/dl (12.0-16.0); LYMPHOCYTES # 1.1 10^3/ul (0.8-2.9); LYMPHOCYTES % 9.3 % (15.0-51.0); MEAN CORPUSCULAR HEMOGLOBIN 32.1 pg (29.0-33.0); MEAN CORPUSCULAR HGB CONC 35.1 g/dl (32.0-37.0); MEAN CORPUSCULAR VOLUME 91.3 fl (82.0-101.0); MEAN PLATELET VOLUME 10.2 fl (7.4-10.4); MONOCYTE # 0.6 10^3/ul (0.3-0.9); MONOCYTES % 4.7 % (0.0-11.0); NEUTROPHIL # 9.9 10^3/ul (1.6-7.5); PLATELET COUNT 202 10^3/UL (140-415); RED BLOOD COUNT 2.87 10^6/ul (4.20-5.40); RED CELL DISTRIBUTION WIDTH 17.1 % (11.5-14.5)
[2018-01-28 06:48] LABS: HEMOGLOBIN A1C 5.4 % (0-5.9)
[2018-01-28] MEDS ORDERED: ROCURONIUM 50 MG INJ (07:00)
[2018-01-28 07:06] LABS: ANION GAP 15 (8-16); BLOOD UREA NITROGEN 7 mg/dl (7-20); CARBON DIOXIDE 28 mmol/L (21-31); CHLORIDE 96 mmol/L (97-110); CHOL/HDL RATIO 1.9 RATIO; CHOLESTEROL 94 mg/dl (100-200); GLUCOSE 123 mg/dl (70-220); HDL CHOLESTEROL 49 mg/dl (34-88); LDL CHOLESTEROL,CALCULATED 30 mg/dl; PHOSPHORUS 3.3 mg/dl (2.5-4.9); SODIUM 136 mmol/L (135-144); TRIGLYCERIDES 73 mg/dl (0-149)
[2018-01-28 07:09] LABS: MAGNESIUM 0.9 mg/dl (1.7-2.5); POTASSIUM 2.7 mmol/L (3.5-5.1)
[2018-01-28] MEDS: DEXTROSE 5%-0.45% NACL 1,000 ML IV (07:21)
[2018-01-28] MEDS ORDERED: MAGNESIUM SULFATE 6 GM in DEXTROSE 5% 100 ML IVPB (07:30)
[2018-01-28 07:35] LABS: THYROID STIMULATING HORMONE 0.648 MIU/L (0.465-4.680)
[2018-01-28] MEDS: POTASSIUM CHLORIDE 100 ML IVPB ×2 (08:15→23:55)
[2018-01-28] MEDS: HEPARIN 5,000 UNIT/0.5 ML VIAL SC ×2 (08:15→23:06)
[2018-01-28] MEDS: MAGNESIUM SULFATE 2 GM/50 ML 50 ML IVPB ×3 (09:02→12:24)
[2018-01-28 09:29] LABS: ADD UMIC NO; UR ASCORBIC ACID NEGATIVE (NEGATIVE); UR BILIRUBIN (Dip) NEGATIVE (NEGATIVE); UR BLOOD (Dip) NEGATIVE (NEGATIVE); UR CLARITY CLEAR (CLEAR); UR COLOR STRAW (YELLOW); UR GLUCOSE (Dip) NEGATIVE (NEGATIVE); UR KETONES (Dip) NEGATIVE (NEGATIVE); UR LEUKOCYTE ESTERASE (Dip) NEGATIVE Leu/ul (NEGATIVE); UR NITRITE (Dip) NEGATIVE (NEGATIVE); UR SPECIFIC GRAVITY (Dip) 1.008 (1.003-1.030); UR TOTAL PROTEIN (Dip) NEGATIVE (NEGATIVE); UR UROBILINOGEN (Dip) NEGATIVE (NEGATIVE)
[2018-01-28] MEDS: POTASSIUM CHLORIDE 60 MEQ in SOD CHLORIDE 0.9% 500 ML IVPB (10:58)
[2018-01-28] MEDS: IOHEXOL 14.3 MG(I)/ML (ADULT) BTL PO (10:58)
[2018-01-28] MEDS ORDERED: D5-NS + KCL 40 MEQ 1,000 ML IV (12:30)
[2018-01-28] MEDS: IODIXANOL LOCM 100 ML BTL (14:00)
[2018-01-28] MEDS: SOD CHLORIDE 0.9% 100 ML (14:00)
[2018-01-28] MEDS: IODIXANOL LOCM 50 ML BTL (14:06)
[2018-01-28] MEDS: D5-NS + KCL 40 MEQ 1,000 ML IV (15:12)
[2018-01-28] MEDS: PIPER-TAZO 3.375 GM IV (PMX) 100 ML IVPB (17:22)
[2018-01-28] MEDS ORDERED: MIDAZOLAM 1 MG/ML 2 ML INJ (20:33)
[2018-01-28] MEDS ORDERED: PROPOFOL 20 ML (20:33)
[2018-01-28] MEDS ORDERED: SUCCINYLCHOLINE CHLORIDE 100 MG/5 ML SYG IV (20:33)
[2018-01-28] MEDS ORDERED: ONDANSETRON 4 MG INJ (20:39)
[2018-01-28] MEDS ORDERED: METOCLOPRAMIDE 10 MG INJ (20:39)
[2018-01-28] MEDS ORDERED: FENTAnyl 50 MCG/ML VIAL (20:47)
[2018-01-28] MEDS ORDERED: PHENYLephrine (100 MCG/ML) 10ML SYG (20:53)
[2018-01-28] MEDS: CIPROFLOXACIN 400MG/D5W 200 ML IVPB (21:00)
[2018-01-28] MEDS ORDERED: EPHEDrine SULFATE 50 MG/5 ML SYG IV (21:30)
[2018-01-28] MEDS ORDERED: DIPHENHYDRAMINE 50 MG INJ IV (21:30)
[2018-01-28] MEDS ORDERED: ONDANSETRON 4 MG INJ IV (21:30)
[2018-01-28] MEDS ORDERED: MEPERIDINE 25 MG INJ IV (21:30)
[2018-01-28] MEDS ORDERED: HYDROmorphONE 0.5 MG/0.5 ML SYG IV ×3 (21:30)
[2018-01-28] MEDS ORDERED: ALBUMIN HUMAN 5% 250 ML (21:41)
[2018-01-28] MEDS ORDERED: SUGAMMADEX SODIUM 200 MG/2 ML VIAL IV (21:42)
[2018-01-28] MEDS ORDERED: ROPIVACAINE 0.5 % 30 ML VIAL (21:47)
[2018-01-28] MEDS: LORAZEPAM 2 MG INJ IV (22:37)
[2018-01-28 23:00] LABS: ADD MAN DIFF? NO
[2018-01-28] MEDS: metroNIDAZOLE 500 MG/NS (PMX) 100 ML IVPB (23:02)
[2018-01-28 23:04] LABS: WHITE BLOOD COUNT 14.1 10^3/ul (4.8-10.8)
[2018-01-28 23:04] LABS: BASOPHILS % 0.1 % (0.0-2.0); EOSINOPHILS % 0.1 % (0.0-7.0); HEMATOCRIT 23.2 % (37.0-47.0); HEMOGLOBIN 8.2 g/dl (12.0-16.0); LYMPHOCYTES # 1.4 10^3/ul (0.8-2.9); LYMPHOCYTES % 10.1 % (15.0-51.0); MEAN CORPUSCULAR HEMOGLOBIN 32.2 pg (29.0-33.0); MEAN CORPUSCULAR HGB CONC 35.3 g/dl (32.0-37.0); MEAN PLATELET VOLUME 9.3 fl (7.4-10.4); MONOCYTE # 0.8 10^3/ul (0.3-0.9); MONOCYTES % 5.5 % (0.0-11.0); NEUTROPHIL # 11.8 10^3/ul (1.6-7.5); NEUTROPHILS % 83.6 % (39.0-77.0); PLATELET COUNT 158 10^3/UL (140-415); RED BLOOD COUNT 2.55 10^6/ul (4.20-5.40); RED CELL DISTRIBUTION WIDTH 17.2 % (11.5-14.5)
[2018-01-28 23:36] LABS: ANION GAP 16 (8-16); BLOOD UREA NITROGEN 4 mg/dl (7-20); CALCIUM 8.1 mg/dl (8.4-10.2); CARBON DIOXIDE 26 mmol/L (21-31); CHLORIDE 96 mmol/L (97-110); CREATININE 0.54 mg/dl (0.44-1.00); GLUCOSE 123 mg/dl (70-220); SODIUM 135 mmol/L (135-144)
[2018-01-28 23:40] LABS: POTASSIUM 2.7 mmol/L (3.5-5.1)
[2018-01-28] MEDS ORDERED: POTASSIUM CHLORIDE 100 ML IVPB (23:53)
[2018-01-28] MEDS: D5-NS + KCL 20 MEQ 1,000 ML IV (23:55)
[2018-01-28 23:58] LABS: MAGNESIUM 2.2 mg/dl (1.7-2.5)
[2018-01-29] MEDS: PIPER-TAZO 3.375 GM IV (PMX) 100 ML IVPB ×5 (00:10→23:43)
[2018-01-29] MEDS: morphine 2 MG INJ IV ×4 (02:30→07:36)
[2018-01-29] MEDS: POTASSIUM CHLORIDE 100 ML IVPB ×4 (02:30→23:43)
[2018-01-29] MEDS: PANTOPRAZOLE 40 MG INJ IV (05:25)
[2018-01-29] MEDS: metroNIDAZOLE 500 MG/NS (PMX) 100 ML IVPB ×2 (05:25→14:52)
[2018-01-29 06:05] LABS: ADD MAN DIFF? NO
[2018-01-29 06:21] LABS: ABNORMAL IP MESSAGE 1; BASOPHILS % 0.1 % (0.0-2.0); HEMOGLOBIN 7.3 g/dl (12.0-16.0); LYMPHOCYTES # 0.3 10^3/ul (0.8-2.9); LYMPHOCYTES % 3.1 % (15.0-51.0); MEAN CORPUSCULAR HEMOGLOBIN 32.9 pg (29.0-33.0); MEAN CORPUSCULAR HGB CONC 36.5 g/dl (32.0-37.0); MEAN CORPUSCULAR VOLUME 90.1 fl (82.0-101.0); MEAN PLATELET VOLUME 9.8 fl (7.4-10.4); MONOCYTE # 0.5 10^3/ul (0.3-0.9); MONOCYTES % 4.9 % (0.0-11.0); NEUTROPHIL # 9.6 10^3/ul (1.6-7.5); NEUTROPHILS % 91.5 % (39.0-77.0); PLATELET COUNT 193 10^3/UL (140-415); RED BLOOD COUNT 2.22 10^6/ul (4.20-5.40); RED CELL DISTRIBUTION WIDTH 16.9 % (11.5-14.5)
[2018-01-29 06:21] LABS: WHITE BLOOD COUNT 10.5 10^3/ul (4.8-10.8)
[2018-01-29] MEDS: LORAZEPAM 2 MG INJ IV ×2 (06:23→21:03)
[2018-01-29 06:28] LABS: POSITIVE DIFF @See below
[2018-01-29] MEDS: ENOXAPARIN 40 MG/0.4 ML SYG SC (06:29)
[2018-01-29 06:41] LABS: ANION GAP 11 (8-16); BLOOD UREA NITROGEN 6 mg/dl (7-20); CALCIUM 7.9 mg/dl (8.4-10.2); CARBON DIOXIDE 27 mmol/L (21-31); CHLORIDE 100 mmol/L (97-110); GLUCOSE 193 mg/dl (70-220); POTASSIUM 3.4 mmol/L (3.5-5.1); SODIUM 135 mmol/L (135-144)
[2018-01-29 06:54] LABS: MAGNESIUM 1.6 mg/dl (1.7-2.5)
[2018-01-29] MEDS: morphine 1 MG/ML 30 ML (PCA) IV ×2 (07:54→17:55)
[2018-01-29] MEDS: D5-NS + KCL 20 MEQ 1,000 ML IV ×2 (07:58→17:30)
[2018-01-29] MEDS: CIPROFLOXACIN 400MG/D5W 200 ML IVPB (08:52)
[2018-01-29] MEDS: HEPARIN 5,000 UNIT/0.5 ML VIAL SC (08:55)
[2018-01-29 11:15] LABS: IMMEDIATE SPIN CROSSMATCH 1 4
[2018-01-29] MEDS ORDERED: MAGNESIUM SULFATE 3 GM in DEXTROSE 5% 100 ML IVPB (17:00)
[2018-01-29 17:04] LABS: HEMATOCRIT 32.6 % (37.0-47.0); HEMOGLOBIN 11.7 g/dl (12.0-16.0)
[2018-01-29 17:29] LABS: ANION GAP 12 (8-16); BLOOD UREA NITROGEN 3 mg/dl (7-20); CALCIUM 8.2 mg/dl (8.4-10.2); CARBON DIOXIDE 28 mmol/L (21-31); CHLORIDE 97 mmol/L (97-110); CREATININE 0.48 mg/dl (0.44-1.00); GLUCOSE 153 mg/dl (70-220); SODIUM 134 mmol/L (135-144)
[2018-01-29 17:31] LABS: POTASSIUM 2.9 mmol/L (3.5-5.1)
[2018-01-29] MEDS: MAG SULFATE 2GM IN 50 ML IVPB (17:38)
[2018-01-29 17:42] LABS: MAGNESIUM 1.3 mg/dl (1.7-2.5)
[2018-01-29] MEDS: ONDANSETRON 4 MG INJ IV (18:28)
[2018-01-29] MEDS: MAGNESIUM SULFATE 1 GM/D5W 100 ML IVPB (20:15)
[2018-01-30] MEDS: POTASSIUM CHLORIDE 100 ML IVPB ×3 (00:12→15:08)
[2018-01-30] MEDS: morphine 1 MG/ML 30 ML (PCA) IV ×2 (02:20→09:50)
[2018-01-30] MEDS: D5-NS + KCL 20 MEQ 1,000 ML IV ×3 (03:35→23:51)
[2018-01-30 05:46] LABS: ADD MAN DIFF? NO
[2018-01-30] MEDS: PANTOPRAZOLE 40 MG INJ IV (06:02)
[2018-01-30] MEDS: PIPER-TAZO 3.375 GM IV (PMX) 100 ML IVPB ×4 (06:02→23:51)
[2018-01-30 06:06] LABS: WHITE BLOOD COUNT 11.6 10^3/ul (4.8-10.8)
[2018-01-30 06:07] LABS: BASOPHILS % 0.1 % (0.0-2.0); HEMATOCRIT 30.3 % (37.0-47.0); HEMOGLOBIN 10.9 g/dl (12.0-16.0); LYMPHOCYTES # 0.8 10^3/ul (0.8-2.9); LYMPHOCYTES % 7.1 % (15.0-51.0); MEAN CORPUSCULAR HEMOGLOBIN 31.1 pg (29.0-33.0); MEAN CORPUSCULAR VOLUME 86.6 fl (82.0-101.0); MEAN PLATELET VOLUME 9.1 fl (7.4-10.4); MONOCYTE # 0.9 10^3/ul (0.3-0.9); MONOCYTES % 7.9 % (0.0-11.0); NEUTROPHIL # 9.8 10^3/ul (1.6-7.5); NEUTROPHILS % 84.4 % (39.0-77.0); PLATELET COUNT 185 10^3/UL (140-415); RED CELL DISTRIBUTION WIDTH 15.7 % (11.5-14.5)
[2018-01-30] MEDS: ENOXAPARIN 40 MG/0.4 ML SYG SC (06:30)
[2018-01-30 06:46] LABS: PHOSPHORUS 2.8 mg/dl (2.5-4.9)
[2018-01-30 06:46] LABS: MAGNESIUM 1.8 mg/dl (1.7-2.5)
[2018-01-30 06:55] LABS: ANION GAP 12 (8-16); BLOOD UREA NITROGEN 5 mg/dl (7-20); CALCIUM 8.5 mg/dl (8.4-10.2); CARBON DIOXIDE 29 mmol/L (21-31); CHLORIDE 99 mmol/L (97-110); CREATININE 0.51 mg/dl (0.44-1.00); GLUCOSE 122 mg/dl (70-220); POTASSIUM 3.6 mmol/L (3.5-5.1); SODIUM 136 mmol/L (135-144)
[2018-01-30 07:51] LABS: MAGNESIUM 1.9 mg/dl (1.7-2.5)
[2018-01-30] MEDS: MAGNESIUM SULFATE 1 GM/D5W 100 ML IVPB ×3 (09:44→13:36)
[2018-01-30] MEDS ORDERED: FENTAnyl (DRIP) 1000 mcg/100mL 100 ML IV (12:00)
[2018-01-30] MEDS: ACETAMINOPHEN 1000MG/100ML IV 100 ML IVPB ×3 (13:36→23:51)
[2018-01-30] MEDS: FENTAnyl (DRIP) 1000 mcg/100mL 100 ML IV (14:13)
[2018-01-30] MEDS: KETOROLAC 15 MG INJ IV (20:35)
[2018-01-31] MEDS: ONDANSETRON 4 MG INJ IV ×2 (00:40→07:40)
[2018-01-31] MEDS: KETOROLAC 15 MG INJ IV ×4 (02:00→20:56)
[2018-01-31 05:34] LABS: ADD MAN DIFF? NO
[2018-01-31 05:38] LABS: EOSINOPHILS % 0.2 % (0.0-7.0); HEMATOCRIT 25.8 % (37.0-47.0); HEMOGLOBIN 8.9 g/dl (12.0-16.0); LYMPHOCYTES # 0.8 10^3/ul (0.8-2.9); LYMPHOCYTES % 13.7 % (15.0-51.0); MEAN CORPUSCULAR HEMOGLOBIN 31.4 pg (29.0-33.0); MEAN CORPUSCULAR HGB CONC 34.5 g/dl (32.0-37.0); MEAN CORPUSCULAR VOLUME 91.2 fl (82.0-101.0); MEAN PLATELET VOLUME 9.4 fl (7.4-10.4); MONOCYTE # 0.5 10^3/ul (0.3-0.9); MONOCYTES % 7.9 % (0.0-11.0); NEUTROPHIL # 4.6 10^3/ul (1.6-7.5); NEUTROPHILS % 77.9 % (39.0-77.0); PLATELET COUNT 153 10^3/UL (140-415); RED BLOOD COUNT 2.83 10^6/ul (4.20-5.40); RED CELL DISTRIBUTION WIDTH 16.1 % (11.5-14.5)
[2018-01-31 05:38] LABS: WHITE BLOOD COUNT 5.8 10^3/ul (4.8-10.8)
[2018-01-31] MEDS: SOD CHLORIDE 0.9% 500 ML IV (05:47)
[2018-01-31] MEDS: PANTOPRAZOLE 40 MG INJ IV (05:54)
[2018-01-31] MEDS: ACETAMINOPHEN 1000MG/100ML IV 100 ML IVPB ×4 (05:55→23:54)
[2018-01-31] MEDS: PIPER-TAZO 3.375 GM IV (PMX) 100 ML IVPB ×3 (05:55→18:19)
[2018-01-31 06:02] LABS: ANION GAP 10 (8-16); BLOOD UREA NITROGEN 12 mg/dl (7-20); CARBON DIOXIDE 28 mmol/L (21-31); CHLORIDE 104 mmol/L (97-110); CREATININE 0.58 mg/dl (0.44-1.00); GLUCOSE 109 mg/dl (70-220); POTASSIUM 3.7 mmol/L (3.5-5.1); SODIUM 138 mmol/L (135-144)
[2018-01-31 06:26] LABS: MAGNESIUM 1.8 mg/dl (1.7-2.5)
[2018-01-31 06:26] LABS: PHOSPHORUS 3.1 mg/dl (2.5-4.9)
[2018-01-31] MEDS: ENOXAPARIN 40 MG/0.4 ML SYG SC (06:28)
[2018-01-31] MEDS ORDERED: morphine 2 MG INJ IV (06:30)
[2018-01-31] MEDS: D5-NS + KCL 20 MEQ 1,000 ML IV ×3 (09:37→19:30)
[2018-01-31] MEDS: morphine 2 MG INJ IV ×3 (10:30→21:53)
[2018-01-31] MEDS: SOD CHLORIDE 0.9% 1,000 ML IV (13:36)
[2018-01-31] MEDS: LORAZEPAM 2 MG INJ IV ×2 (16:35→23:54)
[2018-02-01] MEDS: PIPER-TAZO 3.375 GM IV (PMX) 100 ML IVPB ×4 (00:34→17:34)
[2018-02-01] MEDS: KETOROLAC 15 MG INJ IV ×3 (02:43→14:28)
[2018-02-01] MEDS: D5-NS + KCL 20 MEQ 1,000 ML IV ×2 (04:01→16:05)
[2018-02-01] MEDS: ACETAMINOPHEN 1000MG/100ML IV 100 ML IVPB ×3 (05:13→18:26)
[2018-02-01] MEDS: PANTOPRAZOLE 40 MG INJ IV (05:15)
[2018-02-01 06:10] LABS: ADD MAN DIFF? NO
[2018-02-01 06:22] LABS: WHITE BLOOD COUNT 6.1 10^3/ul (4.8-10.8)
[2018-02-01 06:22] LABS: BASOPHILS % 0.2 % (0.0-2.0); EOSINOPHILS # 0.1 10^3/ul (0.0-0.5); HEMATOCRIT 26.9 % (37.0-47.0); HEMOGLOBIN 9.4 g/dl (12.0-16.0); MEAN CORPUSCULAR HEMOGLOBIN 32.2 pg (29.0-33.0); MEAN CORPUSCULAR HGB CONC 34.9 g/dl (32.0-37.0); MEAN CORPUSCULAR VOLUME 92.1 fl (82.0-101.0); MEAN PLATELET VOLUME 9.2 fl (7.4-10.4); MONOCYTE # 0.4 10^3/ul (0.3-0.9); MONOCYTES % 6.9 % (0.0-11.0); NEUTROPHIL # 4.6 10^3/ul (1.6-7.5); NEUTROPHILS % 74.6 % (39.0-77.0); PLATELET COUNT 183 10^3/UL (140-415); RED BLOOD COUNT 2.92 10^6/ul (4.20-5.40); RED CELL DISTRIBUTION WIDTH 16.2 % (11.5-14.5)
[2018-02-01] MEDS: morphine 2 MG INJ IV ×3 (06:25→20:11)
[2018-02-01] MEDS: ENOXAPARIN 40 MG/0.4 ML SYG SC (06:30)
[2018-02-01 07:14] LABS: ANION GAP 9 (8-16); BLOOD UREA NITROGEN 10 mg/dl (7-20); CARBON DIOXIDE 25 mmol/L (21-31); CHLORIDE 106 mmol/L (97-110); GLUCOSE 105 mg/dl (70-220); POTASSIUM 3.3 mmol/L (3.5-5.1); SODIUM 137 mmol/L (135-144)
[2018-02-01] MEDS: LORAZEPAM 2 MG INJ IV (13:18)
[2018-02-01] MEDS: POTASSIUM CHLORIDE (SR) 20 MEQ TAB PO (16:06)
[2018-02-02] MEDS: morphine 2 MG INJ IV ×6 (00:08→23:50)
[2018-02-02] MEDS: ACETAMINOPHEN 1000MG/100ML IV 100 ML IVPB ×5 (00:09→23:49)
[2018-02-02] MEDS: PIPER-TAZO 3.375 GM IV (PMX) 100 ML IVPB ×5 (00:09→23:49)
[2018-02-02] MEDS: LORAZEPAM 2 MG INJ IV ×3 (00:44→21:16)
[2018-02-02] MEDS: D5-NS + KCL 20 MEQ 1,000 ML IV ×4 (03:19→21:09)
[2018-02-02 06:04] LABS: ADD MAN DIFF? NO
[2018-02-02 06:08] LABS: BASOPHILS % 0.2 % (0.0-2.0); EOSINOPHILS # 0.1 10^3/ul (0.0-0.5); EOSINOPHILS % 1.2 % (0.0-7.0); HEMATOCRIT 31.7 % (37.0-47.0); HEMOGLOBIN 10.7 g/dl (12.0-16.0); LYMPHOCYTES # 1.5 10^3/ul (0.8-2.9); LYMPHOCYTES % 23.4 % (15.0-51.0); MEAN CORPUSCULAR HEMOGLOBIN 31.5 pg (29.0-33.0); MEAN CORPUSCULAR HGB CONC 33.8 g/dl (32.0-37.0); MEAN CORPUSCULAR VOLUME 93.2 fl (82.0-101.0); MONOCYTE # 0.5 10^3/ul (0.3-0.9); MONOCYTES % 7.9 % (0.0-11.0); NEUTROPHIL # 4.3 10^3/ul (1.6-7.5); PLATELET COUNT 204 10^3/UL (140-415); RED CELL DISTRIBUTION WIDTH 16.3 % (11.5-14.5)
[2018-02-02 06:08] LABS: WHITE BLOOD COUNT 6.5 10^3/ul (4.8-10.8)
[2018-02-02] MEDS: ENOXAPARIN 40 MG/0.4 ML SYG SC (06:33)
[2018-02-02] MEDS: PANTOPRAZOLE 40 MG INJ IV (06:33)
[2018-02-02 06:47] LABS: PHOSPHORUS 3.8 mg/dl (2.5-4.9)
[2018-02-02 07:25] LABS: ANION GAP 10 (8-16); BLOOD UREA NITROGEN 5 mg/dl (7-20); CALCIUM 8.3 mg/dl (8.4-10.2); CARBON DIOXIDE 21 mmol/L (21-31); CHLORIDE 110 mmol/L (97-110); CREATININE 0.44 mg/dl (0.44-1.00); GLUCOSE 98 mg/dl (70-220); SODIUM 137 mmol/L (135-144)
[2018-02-02] MEDS: METOCLOPRAMIDE 10 MG INJ IV (08:51)
[2018-02-03] MEDS: LOPERAMIDE 2 MG CAP PO ×2 (00:30→16:46)
[2018-02-03] MEDS: LORAZEPAM 2 MG INJ IV ×3 (02:35→21:55)
[2018-02-03] MEDS: morphine 2 MG INJ IV ×4 (05:00→21:10)
[2018-02-03] MEDS: PANTOPRAZOLE 40 MG INJ IV (05:42)
[2018-02-03] MEDS: ACETAMINOPHEN 1000MG/100ML IV 100 ML IVPB ×2 (05:43→11:45)
[2018-02-03] MEDS: D5-NS + KCL 20 MEQ 1,000 ML IV ×2 (05:43→06:30)
[2018-02-03] MEDS: PIPER-TAZO 3.375 GM IV (PMX) 100 ML IVPB ×2 (05:54→11:45)
[2018-02-03 06:21] LABS: ADD MAN DIFF? NO
[2018-02-03] MEDS: ENOXAPARIN 40 MG/0.4 ML SYG SC (06:28)
[2018-02-03 06:33] LABS: WHITE BLOOD COUNT 6.6 10^3/ul (4.8-10.8)
[2018-02-03 06:33] LABS: BASOPHILS % 0.2 % (0.0-2.0); EOSINOPHILS # 0.1 10^3/ul (0.0-0.5); EOSINOPHILS % 1.4 % (0.0-7.0); HEMATOCRIT 28.4 % (37.0-47.0); HEMOGLOBIN 9.7 g/dl (12.0-16.0); LYMPHOCYTES # 1.5 10^3/ul (0.8-2.9); LYMPHOCYTES % 22.7 % (15.0-51.0); MEAN CORPUSCULAR HEMOGLOBIN 31.3 pg (29.0-33.0); MEAN CORPUSCULAR HGB CONC 34.2 g/dl (32.0-37.0); MEAN CORPUSCULAR VOLUME 91.6 fl (82.0-101.0); MEAN PLATELET VOLUME 9.2 fl (7.4-10.4); MONOCYTE # 0.6 10^3/ul (0.3-0.9); MONOCYTES % 8.3 % (0.0-11.0); NEUTROPHIL # 4.4 10^3/ul (1.6-7.5); NEUTROPHILS % 66.9 % (39.0-77.0); PLATELET COUNT 213 10^3/UL (140-415); RED CELL DISTRIBUTION WIDTH 16.2 % (11.5-14.5)
[2018-02-03 06:58] LABS: ANION GAP 12 (8-16); BLOOD UREA NITROGEN 2 mg/dl (7-20); CARBON DIOXIDE 26 mmol/L (21-31); CHLORIDE 103 mmol/L (97-110); CREATININE 0.48 mg/dl (0.44-1.00); GLUCOSE 93 mg/dl (70-220); POTASSIUM 3.4 mmol/L (3.5-5.1); SODIUM 138 mmol/L (135-144)
[2018-02-03] MEDS: POTASSIUM CHLORIDE (SR) 20 MEQ TAB PO (16:46)
[2018-02-04] MEDS: morphine 2 MG INJ IV ×3 (00:51→06:58)
[2018-02-04 06:11] LABS: ADD MAN DIFF? NO
[2018-02-04 06:26] LABS: BASOPHILS % 0.1 % (0.0-2.0); EOSINOPHILS # 0.1 10^3/ul (0.0-0.5); EOSINOPHILS % 1.5 % (0.0-7.0); HEMATOCRIT 29.5 % (37.0-47.0); HEMOGLOBIN 9.8 g/dl (12.0-16.0); LYMPHOCYTES # 1.6 10^3/ul (0.8-2.9); LYMPHOCYTES % 21.5 % (15.0-51.0); MEAN CORPUSCULAR HEMOGLOBIN 30.7 pg (29.0-33.0); MEAN CORPUSCULAR HGB CONC 33.2 g/dl (32.0-37.0); MEAN CORPUSCULAR VOLUME 92.5 fl (82.0-101.0); MEAN PLATELET VOLUME 9.2 fl (7.4-10.4); MONOCYTE # 0.6 10^3/ul (0.3-0.9); MONOCYTES % 8.4 % (0.0-11.0); NEUTROPHIL # 4.9 10^3/ul (1.6-7.5); NEUTROPHILS % 67.9 % (39.0-77.0); PLATELET COUNT 230 10^3/UL (140-415); RED BLOOD COUNT 3.19 10^6/ul (4.20-5.40); RED CELL DISTRIBUTION WIDTH 16.4 % (11.5-14.5)
[2018-02-04 06:26] LABS: WHITE BLOOD COUNT 7.2 10^3/ul (4.8-10.8)
[2018-02-04 06:50] LABS: ANION GAP 13 (8-16); BLOOD UREA NITROGEN 3 mg/dl (7-20); CALCIUM 8.6 mg/dl (8.4-10.2); CARBON DIOXIDE 27 mmol/L (21-31); CHLORIDE 102 mmol/L (97-110); GLUCOSE 84 mg/dl (70-220); POTASSIUM 3.9 mmol/L (3.5-5.1); SODIUM 138 mmol/L (135-144)
[2018-02-04] MEDS: ENOXAPARIN 40 MG/0.4 ML SYG SC (06:54)
[2018-02-04] MEDS: morphine LIQ (10 MG/5 ML) CUP PO ×3 (10:35→15:49)
[2018-02-04] MEDS: LORAZEPAM 2 MG INJ IV (23:34)
[2018-02-05 01:54] LABS: ADD UMIC NO; UR ASCORBIC ACID NEGATIVE (NEGATIVE); UR BILIRUBIN (Dip) NEGATIVE (NEGATIVE); UR BLOOD (Dip) NEGATIVE (NEGATIVE); UR CLARITY CLEAR (CLEAR); UR COLOR STRAW (YELLOW); UR GLUCOSE (Dip) NEGATIVE (NEGATIVE); UR KETONES (Dip) TRACE mg/dL (NEGATIVE); UR LEUKOCYTE ESTERASE (Dip) NEGATIVE Leu/ul (NEGATIVE); UR NITRITE (Dip) NEGATIVE (NEGATIVE); UR SPECIFIC GRAVITY (Dip) 1.006 (1.003-1.030); UR TOTAL PROTEIN (Dip) NEGATIVE (NEGATIVE); UR UROBILINOGEN (Dip) NEGATIVE (NEGATIVE)
[2018-02-05] MEDS: ENOXAPARIN 40 MG/0.4 ML SYG SC (06:22)
[2018-02-05] MEDS: LORAZEPAM 2 MG INJ IV (07:56)
[2018-02-05] MEDS: morphine LIQ (10 MG/5 ML) CUP PO (10:53)
== END 2018-02-05 13:15 | disposition home or self-care (01) | DRG 329 ==
LOC: MS3 18:14 → MS2 01-31 16:09 → ICU 01-28 22:01 → MS1 02-03 20:38 → MS2 02-03 20:44
PROVIDERS: Hospitalist
PROC: 0DBB0ZZ Excision of Ileum, Open Approach (ICD-10-PCS; principal; 2018-01-28 20:00)
PROC: 0DNU0ZZ Release Omentum, Open Approach (ICD-10-PCS; 2018-01-28 20:00)
PROC: 30233N1 Transfusion of Nonautologous Red Blood Cells into Peripheral Vein, Percutaneous Approach (ICD-10-PCS; 2018-01-28 20:41)
DX: K63.1 Perforation of intestine (nontraumatic) (principal); K65.1 Peritoneal abscess; C56.9 Malignant neoplasm of unspecified ovary; E44.0 Moderate protein-calorie malnutrition; Z68.1 Body mass index [BMI] 19.9 or less, adult; K66.0 Peritoneal adhesions (postprocedural) (postinfection); E87.6 Hypokalemia; E83.42 Hypomagnesemia; E78.5 Hyperlipidemia, unspecified; E11.9 Type 2 diabetes mellitus without complications
CPT/HCPCS: 36430; 71045; 74018; 74177; 80048; 80061; 81003; 82962; 83036; 83735; 84100; 84439; 84443; 85014; 85018; 85025; 86850; 86900; 86901; 86920; 87040; 87070; 87075; 87081; 87086; 88304; 97116; 97162

== ENCOUNTER 2018-03-07 20:15 | Inpatient (IN) | payer OTHER ==
[2018-03-07] MEDS: morphine 4 MG/ML VIAL IV (20:58)
[2018-03-07] MEDS: ONDANSETRON 4 MG INJ IV ×2 (20:58→23:09)
[2018-03-07] MEDS: SODIUM CHLORIDE 0.9% 1L BAG IV* (20:58)
[2018-03-07 21:51] LABS: ADD MAN DIFF? NO
[2018-03-07 22:05] LABS: BASOPHILS % 0.3 % (0.0-2.0); EOSINOPHILS # 0.1 10^3/ul (0.0-0.5); HEMATOCRIT 29.9 % (37.0-47.0); HEMOGLOBIN 9.7 g/dl (12.0-16.0); IMMATURE GRANS #M 0.03 10^3/ul; IMMATURE GRANS % (M) 0.4 %; LYMPHOCYTES # 1.9 10^3/ul (0.8-2.9); LYMPHOCYTES % 23.8 % (15.0-51.0); MEAN CORPUSCULAR HEMOGLOBIN 30.5 pg (29.0-33.0); MEAN CORPUSCULAR HGB CONC 32.4 g/dl (32.0-37.0); MEAN PLATELET VOLUME 9.4 fl (7.4-10.4); MONOCYTE # 0.7 10^3/ul (0.3-0.9); NEUTROPHIL # 5.3 10^3/ul (1.6-7.5); NEUTROPHILS % 65.5 % (39.0-77.0); PLATELET COUNT 364 10^3/UL (140-415); RED BLOOD COUNT 3.18 10^6/ul (4.20-5.40); RED CELL DISTRIBUTION WIDTH 19.3 % (11.5-14.5)
[2018-03-07 22:25] LABS: PROTIME 12.2 Sec (11.9-14.9)
[2018-03-07 22:26] LABS: ALANINE AMINOTRANSFERASE 12 IU/L (13-69); ALBUMIN 3.7 g/dl (3.3-4.9); ALBUMIN/GLOBULIN RATIO 1.02; ALKALINE PHOSPHATASE 75 IU/L (42-121); ANION GAP 14 (8-16); ASPARTATE AMINO TRANSFERASE 26 IU/L (15-46); BILIRUBIN,INDIRECT 0.1 mg/dl (0-1.1); BILIRUBIN,TOTAL 0.1 mg/dl (0.2-1.3); BLOOD UREA NITROGEN 12 mg/dl (7-20); CALCIUM 8.6 mg/dl (8.4-10.2); CARBON DIOXIDE 31 mmol/L (21-31); CHLORIDE 95 mmol/L (97-110); GLUCOSE 117 mg/dl (70-220); SODIUM 137 mmol/L (135-144); TOTAL PROTEIN 7.3 g/dl (6.1-8.1)
[2018-03-07] MEDS: HYDROmorphONE 1 MG/ML SYG IV (23:09)
[2018-03-08] MEDS: IOHEXOL 300MG/ML 150 ML BTL ×2 (00:30→02:25)
[2018-03-08] MEDS: SOD CHLORIDE 0.9% 100 ML (00:30)
[2018-03-08] MEDS: POTASSIUM CHLORIDE (SR) 20 MEQ TAB PO (00:51)
[2018-03-08 01:42] LABS: LACTIC ACID 0.7 mmol/L (0.5-2.0)
[2018-03-08] MEDS ORDERED: ACETAMINOPHEN 325 MG TAB PO (03:00)
[2018-03-08] MEDS: ONDANSETRON 4 MG INJ IV (03:04)
[2018-03-08] MEDS: HYDROmorphONE 1 MG/ML SYG IV (03:04)
[2018-03-08] MEDS ORDERED: NACL 0.9% 3 ML SYG IV (04:00)
[2018-03-08] MEDS: PIPER-TAZO 3.375 GM IV (PMX) 100 ML IVPB ×3 (04:16→17:51)
[2018-03-08] MEDS: SOD CHLORIDE 0.9% 500 ML IV (05:29)
[2018-03-08] MEDS: HYDROmorphONE 0.5 MG/0.5 ML SYG IV ×5 (05:37→22:08)
[2018-03-08] MEDS: POTASSIUM CHLORIDE 40 MEQ in SOD CHLORIDE 0.9% 1,000 ML IV (06:29)
[2018-03-08] MEDS ORDERED: PENDING SANTYL ORDER FOR WOUND CARE XX (07:00)
[2018-03-08] MEDS: LOPERAMIDE HCL 1 MG/5 ML LIQUID (10 ML UD CUP) GTB (19:55)
[2018-03-08] MEDS ORDERED: CEFTRIAXONE 500 MG in SOD CHLORIDE 0.9% 50 ML IVPB (23:30)
[2018-03-09] MEDS ORDERED: CEFTRIAXONE 1 GM/50 ML (PMX) 50 ML IVPB (00:22)
[2018-03-09 00:24] LABS: ADD UMIC NO; UR ASCORBIC ACID NEGATIVE (NEGATIVE); UR BILIRUBIN (Dip) NEGATIVE (NEGATIVE); UR BLOOD (Dip) NEGATIVE (NEGATIVE); UR CLARITY CLEAR (CLEAR); UR COLOR STRAW (YELLOW); UR GLUCOSE (Dip) NEGATIVE (NEGATIVE); UR KETONES (Dip) NEGATIVE (NEGATIVE); UR LEUKOCYTE ESTERASE (Dip) NEGATIVE Leu/ul (NEGATIVE); UR NITRITE (Dip) NEGATIVE (NEGATIVE); UR SPECIFIC GRAVITY (Dip) 1.013 (1.003-1.030); UR TOTAL PROTEIN (Dip) NEGATIVE (NEGATIVE); UR UROBILINOGEN (Dip) NEGATIVE (NEGATIVE)
[2018-03-09] MEDS: CEFTRIAXONE 1 GM/50 ML (PMX) 50 ML IVPB (00:46)
[2018-03-09] MEDS: HYDROmorphONE 0.5 MG/0.5 ML SYG IV ×6 (02:27→23:07)
[2018-03-09 05:25] LABS: ADD MAN DIFF? NO
[2018-03-09 05:29] LABS: WHITE BLOOD COUNT 4.9 10^3/ul (4.8-10.8)
[2018-03-09 05:29] LABS: BASOPHILS % 0.2 % (0.0-2.0); EOSINOPHILS # 0.1 10^3/ul (0.0-0.5); EOSINOPHILS % 2.2 % (0.0-7.0); HEMATOCRIT 26.6 % (37.0-47.0); HEMOGLOBIN 8.6 g/dl (12.0-16.0); IMMATURE GRANS #M 0.01 10^3/ul; IMMATURE GRANS % (M) 0.2 %; LYMPHOCYTES # 1.8 10^3/ul (0.8-2.9); LYMPHOCYTES % 37.1 % (15.0-51.0); MEAN CORPUSCULAR HEMOGLOBIN 30.8 pg (29.0-33.0); MEAN CORPUSCULAR HGB CONC 32.3 g/dl (32.0-37.0); MEAN CORPUSCULAR VOLUME 95.3 fl (82.0-101.0); MEAN PLATELET VOLUME 8.8 fl (7.4-10.4); MONOCYTE # 0.4 10^3/ul (0.3-0.9); NEUTROPHIL # 2.5 10^3/ul (1.6-7.5); NEUTROPHILS % 51.3 % (39.0-77.0); PLATELET COUNT 297 10^3/UL (140-415); RED BLOOD COUNT 2.79 10^6/ul (4.20-5.40); RED CELL DISTRIBUTION WIDTH 18.8 % (11.5-14.5)
[2018-03-09] MEDS: PIPER-TAZO 3.375 GM IV (PMX) 100 ML IVPB ×5 (05:32→23:50)
[2018-03-09 05:53] LABS: IRON 27 ug/dl (35-150)
[2018-03-09 05:56] LABS: ALANINE AMINOTRANSFERASE 11 IU/L (13-69); ALBUMIN/GLOBULIN RATIO 0.96; ALKALINE PHOSPHATASE 63 IU/L (42-121); ANION GAP 12 (8-16); ASPARTATE AMINO TRANSFERASE 19 IU/L (15-46); BLOOD UREA NITROGEN 6 mg/dl (7-20); CALCIUM 8.5 mg/dl (8.4-10.2); CARBON DIOXIDE 28 mmol/L (21-31); CHLORIDE 103 mmol/L (97-110); CREATININE 0.46 mg/dl (0.44-1.00); GLUCOSE 94 mg/dl (70-220); POTASSIUM 3.2 mmol/L (3.5-5.1); SODIUM 140 mmol/L (135-144); TOTAL PROTEIN 6.1 g/dl (6.1-8.1)
[2018-03-09 06:02] LABS: % IRON SATURATION 15 % SAT (22-52); TOTAL IRON BINDING CAPACITY 181 ug/dl (241-421)
[2018-03-09 07:41] LABS: HEMOGLOBIN A1C 5.2 % (0-5.9)
[2018-03-09] MEDS: LOPERAMIDE HCL 1 MG/5 ML LIQUID (10 ML UD CUP) GTB ×2 (09:39→20:38)
[2018-03-09] MEDS: POTASSIUM CHLORIDE (SR) 20 MEQ TAB PO (11:46)
[2018-03-09 12:17] LABS: MAGNESIUM 0.9 mg/dl (1.7-2.5)
[2018-03-09] MEDS: MAGNESIUM SULFATE 6 GM in DEXTROSE 5% 100 ML IVPB (15:07)
[2018-03-10] MEDS: HYDROmorphONE 0.5 MG/0.5 ML SYG IV ×5 (03:51→20:44)
[2018-03-10] MEDS: PIPER-TAZO 3.375 GM IV (PMX) 100 ML IVPB (05:29)
[2018-03-10 08:03] LABS: ADD MAN DIFF? NO
[2018-03-10 08:07] LABS: BASOPHILS % 0.2 % (0.0-2.0); EOSINOPHILS # 0.2 10^3/ul (0.0-0.5); HEMOGLOBIN 9.9 g/dl (12.0-16.0); IMMATURE GRANS #M 0.01 10^3/ul; IMMATURE GRANS % (M) 0.2 %; LYMPHOCYTES # 1.6 10^3/ul (0.8-2.9); LYMPHOCYTES % 31.4 % (15.0-51.0); MEAN CORPUSCULAR HEMOGLOBIN 31.7 pg (29.0-33.0); MEAN CORPUSCULAR VOLUME 96.2 fl (82.0-101.0); MEAN PLATELET VOLUME 8.7 fl (7.4-10.4); MONOCYTE # 0.4 10^3/ul (0.3-0.9); MONOCYTES % 8.3 % (0.0-11.0); NEUTROPHIL # 2.9 10^3/ul (1.6-7.5); NEUTROPHILS % 56.9 % (39.0-77.0); PLATELET COUNT 338 10^3/UL (140-415); RED BLOOD COUNT 3.12 10^6/ul (4.20-5.40); RED CELL DISTRIBUTION WIDTH 18.5 % (11.5-14.5)
[2018-03-10 08:07] LABS: WHITE BLOOD COUNT 5.1 10^3/ul (4.8-10.8)
[2018-03-10 08:36] LABS: ANION GAP 12 (8-16); BLOOD UREA NITROGEN 9 mg/dl (7-20); CALCIUM 8.6 mg/dl (8.4-10.2); CARBON DIOXIDE 29 mmol/L (21-31); CHLORIDE 100 mmol/L (97-110); CREATININE 0.49 mg/dl (0.44-1.00); GLUCOSE 82 mg/dl (70-220); POTASSIUM 3.2 mmol/L (3.5-5.1); SODIUM 138 mmol/L (135-144)
[2018-03-10] MEDS: CEFPODOXIME 200 MG TAB PO ×2 (10:30→20:44)
[2018-03-10] MEDS: LOPERAMIDE HCL 1 MG/5 ML LIQUID (10 ML UD CUP) GTB (16:38)
[2018-03-11] MEDS: HYDROmorphONE 0.5 MG/0.5 ML SYG IV ×6 (01:22→23:02)
[2018-03-11] MEDS: ONDANSETRON 4 MG INJ IV (01:29)
[2018-03-11] MEDS: CEFPODOXIME 200 MG TAB PO ×2 (09:37→21:42)
[2018-03-12] MEDS ORDERED: HYDROCODONE/APAP (5/325) TAB PO ×2
[2018-03-12] MEDS: HYDROmorphONE 0.5 MG/0.5 ML SYG IV ×5 (03:57→20:54)
[2018-03-12] MEDS: CEFPODOXIME 200 MG TAB PO ×2 (08:08→20:54)
[2018-03-12 14:13] LABS: ANION GAP 12 (8-16); BLOOD UREA NITROGEN 11 mg/dl (7-20); CALCIUM 9.4 mg/dl (8.4-10.2); CARBON DIOXIDE 35 mmol/L (21-31); CHLORIDE 92 mmol/L (97-110); CREATININE 0.55 mg/dl (0.44-1.00); GLUCOSE 122 mg/dl (70-220); MAGNESIUM 1.1 mg/dl (1.7-2.5); POTASSIUM 3.1 mmol/L (3.5-5.1); SODIUM 136 mmol/L (135-144)
[2018-03-12] MEDS: POTASSIUM CHLORIDE (SR) 20 MEQ TAB PO (15:55)
[2018-03-12] MEDS: MAGNESIUM SULFATE 6 GM in DEXTROSE 5% 150 ML IVPB (15:55)
[2018-03-13] MEDS: HYDROmorphONE 0.5 MG/0.5 ML SYG IV ×5 (01:23→17:39)
[2018-03-13] MEDS: CEFPODOXIME 200 MG TAB PO ×2 (08:53→17:38)
[2018-03-13] MEDS: ONDANSETRON 4 MG INJ IV (13:39)
== END 2018-03-13 19:26 | disposition home health service (06) | DRG 863 ==
LOC: E/R 20:15 → PP2 03-08 02:33
DX: T81.4XXA Infection following a procedure, initial encounter (principal); T81.31XA Disruption of external operation (surgical) wound, not elsewhere classified, initial encounter; Z68.1 Body mass index [BMI] 19.9 or less, adult; E44.0 Moderate protein-calorie malnutrition; C56.9 Malignant neoplasm of unspecified ovary; C50.919 Malignant neoplasm of unspecified site of unspecified female breast; E87.6 Hypokalemia; E11.9 Type 2 diabetes mellitus without complications; D64.89 Other specified anemias; E83.42 Hypomagnesemia; Z90.49 Acquired absence of other specified parts of digestive tract; B96.89 Other specified bacterial agents as the cause of diseases classified elsewhere
CPT/HCPCS: 36415; 70450; 71045; 74176; 74177; 80048; 80053; 81003; 83036; 83540; 83605; 83735; 85025; 85610; 85730; 87040; 87070; 87075; 87081; 87086; 93005; 96374; 96375; 96376; 99285-25

== ENCOUNTER 2018-03-19 14:29 | Inpatient (IN) | payer OTHER ==
[2018-03-19] MEDS: SOD CHLORIDE 0.9% 1,000 ML IV (15:50)
[2018-03-19] MEDS: ONDANSETRON 4 MG INJ IV (15:50)
[2018-03-19] MEDS: morphine 4 MG/ML VIAL IV ×2 (15:51→16:58)
[2018-03-19 15:54] LABS: ADD MAN DIFF? NO
[2018-03-19 15:56] LABS: BASOPHILS % 0.2 % (0.0-2.0); EOSINOPHILS # 0.1 10^3/ul (0.0-0.5); EOSINOPHILS % 0.8 % (0.0-7.0); HEMATOCRIT 34.3 % (37.0-47.0); HEMOGLOBIN 11.3 g/dl (12.0-16.0); LYMPHOCYTES # 1.5 10^3/ul (0.8-2.9); LYMPHOCYTES % 11.8 % (15.0-51.0); MEAN CORPUSCULAR HGB CONC 32.9 g/dl (32.0-37.0); MEAN PLATELET VOLUME 8.2 fl (7.4-10.4); MONOCYTE # 0.6 10^3/ul (0.3-0.9); MONOCYTES % 4.5 % (0.0-11.0); NEUTROPHIL # 10.6 10^3/ul (1.6-7.5); NEUTROPHILS % 82.2 % (39.0-77.0); PLATELET COUNT 450 10^3/UL (140-415); RED BLOOD COUNT 3.65 10^6/ul (4.20-5.40); RED CELL DISTRIBUTION WIDTH 17.6 % (11.5-14.5)
[2018-03-19 15:56] LABS: WHITE BLOOD COUNT 12.9 10^3/ul (4.8-10.8)
[2018-03-19 16:14] LABS: ALANINE AMINOTRANSFERASE 28 IU/L (13-69); ALBUMIN 4.2 g/dl (3.3-4.9); ALBUMIN/GLOBULIN RATIO 1.07; ALKALINE PHOSPHATASE 107 IU/L (42-121); ANION GAP 17 (8-16); ASPARTATE AMINO TRANSFERASE 35 IU/L (15-46); BLOOD UREA NITROGEN 15 mg/dl (7-20); CALCIUM 9.7 mg/dl (8.4-10.2); CARBON DIOXIDE 29 mmol/L (21-31); CHLORIDE 99 mmol/L (97-110); CREATININE 0.63 mg/dl (0.44-1.00); GLUCOSE 112 mg/dl (70-220); LIPASE 117 U/L (23-300); POTASSIUM 3.5 mmol/L (3.5-5.1); SODIUM 141 mmol/L (135-144); TOTAL PROTEIN 8.1 g/dl (6.1-8.1)
[2018-03-19 16:48] LABS: ADD UMIC YES; UR ASCORBIC ACID NEGATIVE (NEGATIVE); UR BACTERIA FEW /HPF (NONE SEEN); UR BILIRUBIN (Dip) NEGATIVE (NEGATIVE); UR BLOOD (Dip) NEGATIVE (NEGATIVE); UR CLARITY CLEAR (CLEAR); UR COLOR YELLOW (YELLOW); UR GLUCOSE (Dip) NEGATIVE (NEGATIVE); UR KETONES (Dip) NEGATIVE (NEGATIVE); UR LEUKOCYTE ESTERASE (Dip) NEGATIVE Leu/ul (NEGATIVE); UR MUCUS FEW /HPF (NONE SEEN); UR NITRITE (Dip) NEGATIVE (NEGATIVE); UR RBC 0 /HPF (0-5); UR SPECIFIC GRAVITY (Dip) 1.011 (1.003-1.030); UR TOTAL PROTEIN (Dip) 1+ mg/dl (NEGATIVE); UR UROBILINOGEN (Dip) NEGATIVE (NEGATIVE); UR WBC 4 /HPF (0-5)
[2018-03-19] MEDS ORDERED: ONDANSETRON 4 MG INJ IV (17:30)
[2018-03-19] MEDS ORDERED: ACETAMINOPHEN 325 MG TAB PO (17:30)
[2018-03-19] MEDS ORDERED: HYDROCODONE/APAP (5/325) TAB PO (18:00)
[2018-03-19] MEDS ORDERED: NACL 0.9% 3 ML SYG IV (18:00)
[2018-03-19] MEDS: IOHEXOL 300MG/ML 150 ML BTL (18:26)
[2018-03-19] MEDS: SOD CHLORIDE 0.9% 100 ML (18:26)
[2018-03-19] MEDS: HYDROmorphONE 0.5 MG/0.5 ML SYG IV ×2 (19:44→23:24)
[2018-03-20] MEDS: HYDROmorphONE 1 MG/ML SYG IV ×5 (01:46→20:24)
[2018-03-20] MEDS: ONDANSETRON 4 MG INJ IV ×5 (01:47→20:24)
[2018-03-20 02:28] LABS: LACTIC ACID 0.9 mmol/L (0.5-2.0)
[2018-03-20] MEDS: MEROPENEM 1 GM/50ML(PMX) 50 ML IVPB ×4 (02:34→22:26)
[2018-03-20 08:07] LABS: ADD MAN DIFF? NO
[2018-03-20 08:15] LABS: WHITE BLOOD COUNT 6.6 10^3/ul (4.8-10.8)
[2018-03-20 08:15] LABS: BASOPHILS % 0.3 % (0.0-2.0); EOSINOPHILS # 0.2 10^3/ul (0.0-0.5); EOSINOPHILS % 2.6 % (0.0-7.0); HEMATOCRIT 30.9 % (37.0-47.0); HEMOGLOBIN 10.1 g/dl (12.0-16.0); LYMPHOCYTES # 1.8 10^3/ul (0.8-2.9); LYMPHOCYTES % 27.3 % (15.0-51.0); MEAN CORPUSCULAR HEMOGLOBIN 31.1 pg (29.0-33.0); MEAN CORPUSCULAR HGB CONC 32.7 g/dl (32.0-37.0); MEAN CORPUSCULAR VOLUME 95.1 fl (82.0-101.0); MEAN PLATELET VOLUME 8.7 fl (7.4-10.4); MONOCYTE # 0.5 10^3/ul (0.3-0.9); MONOCYTES % 7.1 % (0.0-11.0); NEUTROPHIL # 4.1 10^3/ul (1.6-7.5); NEUTROPHILS % 62.2 % (39.0-77.0); PLATELET COUNT 414 10^3/UL (140-415); RED BLOOD COUNT 3.25 10^6/ul (4.20-5.40); RED CELL DISTRIBUTION WIDTH 17.3 % (11.5-14.5)
[2018-03-20 08:34] LABS: ALANINE AMINOTRANSFERASE 26 IU/L (13-69); ALBUMIN 3.2 g/dl (3.3-4.9); ALBUMIN/GLOBULIN RATIO 1.03; ALKALINE PHOSPHATASE 76 IU/L (42-121); ANION GAP 13 (8-16); ASPARTATE AMINO TRANSFERASE 23 IU/L (15-46); BILIRUBIN,INDIRECT 0.1 mg/dl (0-1.1); BILIRUBIN,TOTAL 0.1 mg/dl (0.2-1.3); BLOOD UREA NITROGEN 11 mg/dl (7-20); CARBON DIOXIDE 28 mmol/L (21-31); CHLORIDE 98 mmol/L (97-110); CREATININE 0.51 mg/dl (0.44-1.00); GLUCOSE 86 mg/dl (70-220); POTASSIUM 3.3 mmol/L (3.5-5.1); SODIUM 136 mmol/L (135-144); TOTAL PROTEIN 6.3 g/dl (6.1-8.1)
[2018-03-20 08:35] LABS: MAGNESIUM 0.9 mg/dl (1.7-2.5)
[2018-03-20] MEDS: LORAZEPAM 2 MG INJ IV (09:37)
[2018-03-20] MEDS: MAGNESIUM SULFATE 2 GM/50 ML 50 ML IVPB (09:37)
[2018-03-20] MEDS: ENOXAPARIN 40 MG/0.4 ML SYG SC (09:40)
[2018-03-20] MEDS: POTASSIUM CHLORIDE (SR) 20 MEQ TAB PO (10:00)
[2018-03-20] MEDS ORDERED: VANCOMYCIN IV PER PHARMACY XX (10:00)
[2018-03-20] MEDS: morphine 2 MG INJ IV (12:18)
[2018-03-20] MEDS: VANCOMYCIN 750 MG in SOD CHLORIDE 0.9% 150 ML IVPB ×2 (12:18→20:25)
[2018-03-20] MEDS: POLYETHYLENE GLYCOL 17 GM PACKET PO (13:21)
[2018-03-20 14:31] LABS: MAGNESIUM 2.3 mg/dl (1.7-2.5)
[2018-03-20] MEDS: PATIENT'S OWN MED (CO-SIGNATURE) PO ×2 (14:37→22:24)
[2018-03-21] MEDS: ONDANSETRON 4 MG INJ IV ×6 (00:38→22:00)
[2018-03-21] MEDS: HYDROmorphONE 1 MG/ML SYG IV ×6 (00:38→22:00)
[2018-03-21] MEDS: VANCOMYCIN 750 MG in SOD CHLORIDE 0.9% 150 ML IVPB (04:52)
[2018-03-21 06:05] LABS: ADD MAN DIFF? NO
[2018-03-21 06:14] LABS: WHITE BLOOD COUNT 6.5 10^3/ul (4.8-10.8)
[2018-03-21 06:14] LABS: BASOPHILS % 0.2 % (0.0-2.0); EOSINOPHILS # 0.2 10^3/ul (0.0-0.5); EOSINOPHILS % 2.5 % (0.0-7.0); HEMATOCRIT 30.7 % (37.0-47.0); LYMPHOCYTES # 2.1 10^3/ul (0.8-2.9); LYMPHOCYTES % 32.6 % (15.0-51.0); MEAN CORPUSCULAR HEMOGLOBIN 30.4 pg (29.0-33.0); MEAN CORPUSCULAR HGB CONC 32.6 g/dl (32.0-37.0); MEAN CORPUSCULAR VOLUME 93.3 fl (82.0-101.0); MEAN PLATELET VOLUME 8.8 fl (7.4-10.4); MONOCYTE # 0.4 10^3/ul (0.3-0.9); MONOCYTES % 5.7 % (0.0-11.0); NEUTROPHIL # 3.8 10^3/ul (1.6-7.5); NEUTROPHILS % 58.5 % (39.0-77.0); PLATELET COUNT 398 10^3/UL (140-415); RED BLOOD COUNT 3.29 10^6/ul (4.20-5.40); RED CELL DISTRIBUTION WIDTH 16.8 % (11.5-14.5)
[2018-03-21 06:40] LABS: ALANINE AMINOTRANSFERASE 23 IU/L (13-69); ALBUMIN 3.7 g/dl (3.3-4.9); ALBUMIN/GLOBULIN RATIO 1.08; ALKALINE PHOSPHATASE 95 IU/L (42-121); ANION GAP 13 (8-16); ASPARTATE AMINO TRANSFERASE 25 IU/L (15-46); BILIRUBIN,INDIRECT 0.2 mg/dl (0-1.1); BILIRUBIN,TOTAL 0.2 mg/dl (0.2-1.3); BLOOD UREA NITROGEN 8 mg/dl (7-20); CALCIUM 9.3 mg/dl (8.4-10.2); CARBON DIOXIDE 29 mmol/L (21-31); CHLORIDE 96 mmol/L (97-110); CREATININE 0.54 mg/dl (0.44-1.00); GLUCOSE 78 mg/dl (70-220); POTASSIUM 3.1 mmol/L (3.5-5.1); SODIUM 135 mmol/L (135-144); TOTAL PROTEIN 7.1 g/dl (6.1-8.1)
[2018-03-21] MEDS: MEROPENEM 1 GM/50ML(PMX) 50 ML IVPB (06:53)
[2018-03-21 08:17] LABS: ERYTHROCYTE SEDIMENTATION RATE 70 mm/Hr (0-20)
[2018-03-21] MEDS: POLYETHYLENE GLYCOL 17 GM PACKET PO (09:18)
[2018-03-21] MEDS: LEVOFLOXACIN 500 MG TAB PO (09:19)
[2018-03-21] MEDS: ENOXAPARIN 40 MG/0.4 ML SYG SC (09:24)
[2018-03-21] MEDS: PATIENT'S OWN MED (CO-SIGNATURE) PO ×2 (09:24→21:35)
[2018-03-21] MEDS: POTASSIUM CHLORIDE (SR) 20 MEQ TAB PO (10:13)
[2018-03-22] MEDS: ONDANSETRON 4 MG INJ IV ×6 (02:04→22:05)
[2018-03-22] MEDS: HYDROmorphONE 1 MG/ML SYG IV ×6 (02:04→22:05)
[2018-03-22] MEDS: LEVOFLOXACIN 500 MG TAB PO (05:57)
[2018-03-22] MEDS: ENOXAPARIN 40 MG/0.4 ML SYG SC (08:33)
[2018-03-22] MEDS: POLYETHYLENE GLYCOL 17 GM PACKET PO (08:34)
[2018-03-22] MEDS: PATIENT'S OWN MED (CO-SIGNATURE) PO ×2 (08:34→20:13)
[2018-03-22] MEDS: LORAZEPAM 2 MG INJ IV (12:16)
[2018-03-23] MEDS: ONDANSETRON 4 MG INJ IV ×6 (02:08→22:09)
[2018-03-23] MEDS: HYDROmorphONE 1 MG/ML SYG IV ×6 (02:08→22:09)
[2018-03-23 05:24] LABS: ADD MAN DIFF? NO
[2018-03-23 05:30] LABS: BASOPHILS % 0.1 % (0.0-2.0); EOSINOPHILS # 0.1 10^3/ul (0.0-0.5); EOSINOPHILS % 0.4 % (0.0-7.0); HEMATOCRIT 32.8 % (37.0-47.0); HEMOGLOBIN 11.1 g/dl (12.0-16.0); LYMPHOCYTES # 1.3 10^3/ul (0.8-2.9); LYMPHOCYTES % 9.1 % (15.0-51.0); MEAN CORPUSCULAR HEMOGLOBIN 31.7 pg (29.0-33.0); MEAN CORPUSCULAR HGB CONC 33.8 g/dl (32.0-37.0); MEAN CORPUSCULAR VOLUME 93.7 fl (82.0-101.0); MEAN PLATELET VOLUME 8.8 fl (7.4-10.4); MONOCYTE # 0.7 10^3/ul (0.3-0.9); NEUTROPHIL # 12.4 10^3/ul (1.6-7.5); NEUTROPHILS % 84.9 % (39.0-77.0); PLATELET COUNT 386 10^3/UL (140-415); RED CELL DISTRIBUTION WIDTH 16.3 % (11.5-14.5)
[2018-03-23 05:30] LABS: WHITE BLOOD COUNT 14.7 10^3/ul (4.8-10.8)
[2018-03-23] MEDS: LEVOFLOXACIN 500 MG TAB PO (06:00)
[2018-03-23 06:04] LABS: ALANINE AMINOTRANSFERASE 17 IU/L (13-69); ALBUMIN 3.5 g/dl (3.3-4.9); ALBUMIN/GLOBULIN RATIO 0.92; ALKALINE PHOSPHATASE 80 IU/L (42-121); ANION GAP 13 (8-16); ASPARTATE AMINO TRANSFERASE 19 IU/L (15-46); BILIRUBIN,INDIRECT 0.1 mg/dl (0-1.1); BILIRUBIN,TOTAL 0.1 mg/dl (0.2-1.3); BLOOD UREA NITROGEN 11 mg/dl (7-20); CALCIUM 9.2 mg/dl (8.4-10.2); CARBON DIOXIDE 33 mmol/L (21-31); CHLORIDE 92 mmol/L (97-110); CREATININE 0.58 mg/dl (0.44-1.00); GLUCOSE 117 mg/dl (70-220); POTASSIUM 3.1 mmol/L (3.5-5.1); SODIUM 135 mmol/L (135-144); TOTAL PROTEIN 7.3 g/dl (6.1-8.1)
[2018-03-23] MEDS: POLYETHYLENE GLYCOL 17 GM PACKET PO (08:29)
[2018-03-23] MEDS: PATIENT'S OWN MED (CO-SIGNATURE) PO ×2 (08:33→21:28)
[2018-03-23] MEDS: ENOXAPARIN 40 MG/0.4 ML SYG SC (08:33)
[2018-03-23 09:18] LABS: MAGNESIUM 0.8 mg/dl (1.7-2.5)
[2018-03-23] MEDS ORDERED: MAGNESIUM SULFATE 6 GM in DEXTROSE 5% 100 ML IVPB (10:00)
[2018-03-23] MEDS: POTASSIUM CHLORIDE (SR) 20 MEQ TAB PO (10:01)
[2018-03-23] MEDS: MAGNESIUM SULFATE 6 GM in DEXTROSE 5% 150 ML IVPB (11:26)
[2018-03-23] MEDS: LORAZEPAM 2 MG INJ IV (11:26)
[2018-03-23] MEDS: SENNA TAB PO ×2 (14:06→21:00)
[2018-03-24] MEDS: HYDROmorphONE 1 MG/ML SYG IV ×4 (03:46→16:07)
[2018-03-24] MEDS: ONDANSETRON 4 MG INJ IV ×4 (03:46→16:07)
[2018-03-24] MEDS: LEVOFLOXACIN 500 MG TAB PO (05:45)
[2018-03-24] MEDS: LORAZEPAM 2 MG INJ IV (07:08)
[2018-03-24 07:16] LABS: ADD MAN DIFF? NO
[2018-03-24 07:21] LABS: BASOPHILS % 0.1 % (0.0-2.0); EOSINOPHILS # 0.1 10^3/ul (0.0-0.5); EOSINOPHILS % 0.4 % (0.0-7.0); HEMATOCRIT 33.5 % (37.0-47.0); HEMOGLOBIN 11.3 g/dl (12.0-16.0); LYMPHOCYTES # 1.3 10^3/ul (0.8-2.9); LYMPHOCYTES % 9.3 % (15.0-51.0); MEAN CORPUSCULAR HEMOGLOBIN 31.6 pg (29.0-33.0); MEAN CORPUSCULAR HGB CONC 33.7 g/dl (32.0-37.0); MEAN CORPUSCULAR VOLUME 93.6 fl (82.0-101.0); MEAN PLATELET VOLUME 8.6 fl (7.4-10.4); MONOCYTE # 0.8 10^3/ul (0.3-0.9); MONOCYTES % 5.8 % (0.0-11.0); NEUTROPHIL # 12.1 10^3/ul (1.6-7.5); NEUTROPHILS % 83.9 % (39.0-77.0); PLATELET COUNT 377 10^3/UL (140-415); RED BLOOD COUNT 3.58 10^6/ul (4.20-5.40); RED CELL DISTRIBUTION WIDTH 16.3 % (11.5-14.5)
[2018-03-24 07:21] LABS: WHITE BLOOD COUNT 14.4 10^3/ul (4.8-10.8)
[2018-03-24 07:44] LABS: ANION GAP 14 (8-16); BLOOD UREA NITROGEN 10 mg/dl (7-20); CALCIUM 9.5 mg/dl (8.4-10.2); CARBON DIOXIDE 32 mmol/L (21-31); CHLORIDE 90 mmol/L (97-110); CREATININE 0.54 mg/dl (0.44-1.00); GLUCOSE 97 mg/dl (70-220); POTASSIUM 3.3 mmol/L (3.5-5.1); SODIUM 133 mmol/L (135-144)
[2018-03-24 07:44] LABS: MAGNESIUM 1.6 mg/dl (1.7-2.5)
[2018-03-24] MEDS: POLYETHYLENE GLYCOL 17 GM PACKET PO ×2 (08:09→08:18)
[2018-03-24] MEDS: MAGNESIUM HYDROXIDE 30ML CUP PO (08:10)
[2018-03-24] MEDS: ENOXAPARIN 40 MG/0.4 ML SYG SC (08:13)
[2018-03-24] MEDS: PATIENT'S OWN MED (CO-SIGNATURE) PO (08:13)
[2018-03-24] MEDS: SENNA TAB PO (08:18)
[2018-03-24] MEDS: POTASSIUM CHLORIDE 100 ML IVPB ×2 (11:00→13:00)
[2018-03-24] MEDS: MAGNESIUM SULFATE 4 GM/100 ML 100 ML IVPB (11:57)
[2018-03-24] MEDS: POTASSIUM CHLORIDE (SR) 20 MEQ TAB PO (16:38)
== END 2018-03-24 18:45 | disposition home health service (06) | DRG 862 ==
LOC: 2NE 17:04 → E/R 14:29
DX: T81.4XXA Infection following a procedure, initial encounter (principal); E43 Unspecified severe protein-calorie malnutrition; L02.211 Cutaneous abscess of abdominal wall; Z68.1 Body mass index [BMI] 19.9 or less, adult; Z85.41 Personal history of malignant neoplasm of cervix uteri; E83.42 Hypomagnesemia; K59.00 Constipation, unspecified; E87.6 Hypokalemia; Z85.43 Personal history of malignant neoplasm of ovary
CPT/HCPCS: 36415; 74177; 80048; 80053; 81001; 83605; 83690; 83735; 85025; 85651; 87040; 87070; 96361; 96374; 96375; 96376; 99285-25; G0378

== ENCOUNTER 2018-04-19 09:51 | Emergency (ER) | payer OTHER ==
[2018-04-19] MEDS ORDERED: morphine 4 MG/ML VIAL IV (10:15)
[2018-04-19] MEDS ORDERED: morphine 4 MG/ML VIAL IM (10:53)
[2018-04-19] MEDS: morphine 4 MG/ML VIAL IV (11:34)
[2018-04-19] MEDS: ONDANSETRON 4 MG INJ IV (11:34)
[2018-04-19] MEDS: SOD CHLORIDE 0.9% 1,000 ML IV (11:34)
[2018-04-19] MEDS: LORAZEPAM 2 MG INJ IV (12:00)
[2018-04-19 12:16] LABS: ADD MAN DIFF? NO
[2018-04-19 12:18] LABS: BASOPHILS % 0.1 % (0.0-2.0); EOSINOPHILS # 0.2 10^3/ul (0.0-0.5); EOSINOPHILS % 1.9 % (0.0-7.0); HEMOGLOBIN 10.3 g/dl (12.0-16.0); LYMPHOCYTES # 1.6 10^3/ul (0.8-2.9); LYMPHOCYTES % 20.2 % (15.0-51.0); MEAN CORPUSCULAR HEMOGLOBIN 30.9 pg (29.0-33.0); MEAN CORPUSCULAR HGB CONC 33.2 g/dl (32.0-37.0); MEAN CORPUSCULAR VOLUME 93.1 fl (82.0-101.0); MEAN PLATELET VOLUME 8.6 fl (7.4-10.4); MONOCYTE # 0.5 10^3/ul (0.3-0.9); MONOCYTES % 6.7 % (0.0-11.0); NEUTROPHIL # 5.6 10^3/ul (1.6-7.5); NEUTROPHILS % 70.7 % (39.0-77.0); PLATELET COUNT 281 10^3/UL (140-415); RED BLOOD COUNT 3.33 10^6/ul (4.20-5.40); RED CELL DISTRIBUTION WIDTH 15.3 % (11.5-14.5)
[2018-04-19 12:18] LABS: WHITE BLOOD COUNT 7.9 10^3/ul (4.8-10.8)
[2018-04-19 12:38] LABS: LACTIC ACID 0.8 mmol/L (0.5-2.0)
[2018-04-19 12:39] LABS: ALANINE AMINOTRANSFERASE 25 IU/L (13-69); ALBUMIN 3.2 g/dl (3.3-4.9); ALBUMIN/GLOBULIN RATIO 1.03; ALKALINE PHOSPHATASE 76 IU/L (42-121); AMYLASE 65 U/L (11-123); ANION GAP 14 (8-16); ASPARTATE AMINO TRANSFERASE 16 IU/L (15-46); BILIRUBIN,INDIRECT 0.1 mg/dl (0-1.1); BILIRUBIN,TOTAL 0.1 mg/dl (0.2-1.3); BLOOD UREA NITROGEN 17 mg/dl (7-20); CALCIUM 9.2 mg/dl (8.4-10.2); CARBON DIOXIDE 26 mmol/L (21-31); CHLORIDE 102 mmol/L (97-110); CREATININE 0.48 mg/dl (0.44-1.00); GLUCOSE 90 mg/dl (70-220); LIPASE 105 U/L (23-300); POTASSIUM 3.5 mmol/L (3.5-5.1); SODIUM 138 mmol/L (135-144); TOTAL PROTEIN 6.3 g/dl (6.1-8.1)
[2018-04-19 13:42] LABS: ADD UMIC NO; UR ASCORBIC ACID NEGATIVE (NEGATIVE); UR BILIRUBIN (Dip) NEGATIVE (NEGATIVE); UR BLOOD (Dip) NEGATIVE (NEGATIVE); UR CLARITY CLEAR (CLEAR); UR COLOR STRAW (YELLOW); UR GLUCOSE (Dip) NEGATIVE (NEGATIVE); UR KETONES (Dip) NEGATIVE (NEGATIVE); UR LEUKOCYTE ESTERASE (Dip) NEGATIVE Leu/ul (NEGATIVE); UR NITRITE (Dip) NEGATIVE (NEGATIVE); UR SPECIFIC GRAVITY (Dip) 1.011 (1.003-1.030); UR TOTAL PROTEIN (Dip) NEGATIVE (NEGATIVE); UR UROBILINOGEN (Dip) NEGATIVE (NEGATIVE)
[2018-04-19] MEDS: HYDROCODONE/APAP (5/325) TAB PO (15:36)
== END 2018-04-19 15:54 | disposition home or self-care (01) ==
LOC: FTE 09:51
DX: K94.23 Gastrostomy malfunction (principal); I10 Essential (primary) hypertension
CPT/HCPCS: 76705; 80053; 81003; 81025; 82150; 83605; 83690; 85025; 87040; 87070; 87086; 96361; 96374; 96375; 99285-25

== ENCOUNTER 2018-05-12 17:16 | Inpatient (IN) | payer OTHER ==
[2018-05-12 18:45] LABS: ADD MAN DIFF? NO
[2018-05-12 18:53] LABS: BASOPHILS % 0.2 % (0.0-2.0); EOSINOPHILS # 0.1 10^3/ul (0.0-0.5); EOSINOPHILS % 1.9 % (0.0-7.0); HEMATOCRIT 33.2 % (37.0-47.0); LYMPHOCYTES # 2.5 10^3/ul (0.8-2.9); LYMPHOCYTES % 39.5 % (15.0-51.0); MEAN CORPUSCULAR HEMOGLOBIN 31.3 pg (29.0-33.0); MEAN CORPUSCULAR HGB CONC 33.1 g/dl (32.0-37.0); MEAN CORPUSCULAR VOLUME 94.6 fl (82.0-101.0); MEAN PLATELET VOLUME 8.5 fl (7.4-10.4); MONOCYTE # 0.5 10^3/ul (0.3-0.9); MONOCYTES % 7.7 % (0.0-11.0); NEUTROPHIL # 3.2 10^3/ul (1.6-7.5); NEUTROPHILS % 50.4 % (39.0-77.0); PLATELET COUNT 284 10^3/UL (140-415); RED BLOOD COUNT 3.51 10^6/ul (4.20-5.40); RED CELL DISTRIBUTION WIDTH 15.8 % (11.5-14.5)
[2018-05-12 18:53] LABS: WHITE BLOOD COUNT 6.4 10^3/ul (4.8-10.8)
[2018-05-12 19:11] LABS: ALANINE AMINOTRANSFERASE 20 IU/L (13-69); ALBUMIN 3.9 g/dl (3.3-4.9); ALBUMIN/GLOBULIN RATIO 0.92; ALKALINE PHOSPHATASE 78 IU/L (42-121); ANION GAP 16 (8-16); ASPARTATE AMINO TRANSFERASE 66 IU/L (15-46); BILIRUBIN,INDIRECT 0.3 mg/dl (0-1.1); BILIRUBIN,TOTAL 0.3 mg/dl (0.2-1.3); BLOOD UREA NITROGEN 23 mg/dl (7-20); CALCIUM 9.4 mg/dl (8.4-10.2); CARBON DIOXIDE 28 mmol/L (21-31); CHLORIDE 100 mmol/L (97-110); GLUCOSE 85 mg/dl (70-220); POTASSIUM 5.3 mmol/L (3.5-5.1); SODIUM 139 mmol/L (135-144); TOTAL PROTEIN 8.1 g/dl (6.1-8.1)
[2018-05-12] MEDS ORDERED: NACL 0.9% 3 ML SYG IV (20:00)
[2018-05-12] MEDS: morphine 2 MG INJ IV ×2 (20:28→23:21)
[2018-05-12] MEDS: SENNA TAB PO (22:14)
[2018-05-13] MEDS: CLINDAMYCIN 300 MG CAP PO ×4 (00:10→17:34)
[2018-05-13] MEDS: morphine 2 MG INJ IV ×3 (03:34→22:10)
[2018-05-13 08:34] LABS: ADD MAN DIFF? NO
[2018-05-13] MEDS: SENNA TAB PO ×2 (08:36→21:07)
[2018-05-13] MEDS: ENOXAPARIN 40 MG/0.4 ML SYG SC (08:37)
[2018-05-13 08:38] LABS: BASOPHILS % 0.2 % (0.0-2.0); EOSINOPHILS # 0.1 10^3/ul (0.0-0.5); EOSINOPHILS % 2.3 % (0.0-7.0); HEMATOCRIT 32.7 % (37.0-47.0); HEMOGLOBIN 10.6 g/dl (12.0-16.0); LYMPHOCYTES # 2.1 10^3/ul (0.8-2.9); LYMPHOCYTES % 39.9 % (15.0-51.0); MEAN CORPUSCULAR HEMOGLOBIN 30.7 pg (29.0-33.0); MEAN CORPUSCULAR HGB CONC 32.4 g/dl (32.0-37.0); MEAN CORPUSCULAR VOLUME 94.8 fl (82.0-101.0); MEAN PLATELET VOLUME 8.8 fl (7.4-10.4); MONOCYTE # 0.4 10^3/ul (0.3-0.9); MONOCYTES % 7.3 % (0.0-11.0); NEUTROPHIL # 2.7 10^3/ul (1.6-7.5); NEUTROPHILS % 49.9 % (39.0-77.0); PLATELET COUNT 288 10^3/UL (140-415); RED BLOOD COUNT 3.45 10^6/ul (4.20-5.40); RED CELL DISTRIBUTION WIDTH 15.7 % (11.5-14.5)
[2018-05-13 08:38] LABS: WHITE BLOOD COUNT 5.3 10^3/ul (4.8-10.8)
[2018-05-13 08:55] LABS: ALANINE AMINOTRANSFERASE 29 IU/L (13-69); ALBUMIN 3.4 g/dl (3.3-4.9); ALBUMIN/GLOBULIN RATIO 0.97; ALKALINE PHOSPHATASE 86 IU/L (42-121); ANION GAP 9 (8-16); ASPARTATE AMINO TRANSFERASE 27 IU/L (15-46); BILIRUBIN,INDIRECT 0.2 mg/dl (0-1.1); BILIRUBIN,TOTAL 0.2 mg/dl (0.2-1.3); BLOOD UREA NITROGEN 18 mg/dl (7-20); CALCIUM 9.4 mg/dl (8.4-10.2); CARBON DIOXIDE 35 mmol/L (21-31); CHLORIDE 98 mmol/L (97-110); CREATININE 0.59 mg/dl (0.44-1.00); GLUCOSE 81 mg/dl (70-220); MAGNESIUM 1.2 mg/dl (1.7-2.5); PHOSPHORUS 5.6 mg/dl (2.5-4.9); POTASSIUM 3.2 mmol/L (3.5-5.1); SODIUM 139 mmol/L (135-144); TOTAL PROTEIN 6.9 g/dl (6.1-8.1)
[2018-05-13 09:12] LABS: T4 (THYROXINE) 10.1 ug/dl (5.5-11.0)
[2018-05-13 09:25] LABS: HEMOGLOBIN A1C 4.9 % (0-5.9)
[2018-05-13 12:14] LABS: BLOOD UREA NITROGEN 19 mg/dl (7-20); CALCIUM 9.4 mg/dl (8.4-10.2); CARBON DIOXIDE 32 mmol/L (21-31); CHLORIDE 99 mmol/L (97-110); GLUCOSE 83 mg/dl (70-220); POTASSIUM 3.3 mmol/L (3.5-5.1); SODIUM 138 mmol/L (135-144)
[2018-05-13] MEDS: MAGNESIUM SULFATE 2 GM/50 ML 50 ML IVPB (12:35)
[2018-05-13] MEDS: POTASSIUM CHLORIDE 20 MEQ POWDER FOR ORAL SOLN PO (13:10)
[2018-05-13 13:35] LABS: T3 UPTAKE 34.7 % (23.5-40.5)
[2018-05-13] MEDS: LIDOCAINE 1% (MPF) 5 ML VIAL SC (14:20)
[2018-05-13] MEDS: IOHEXOL 300MG/ML 150 ML BTL (15:00)
[2018-05-13] MEDS: SOD CHLORIDE 0.9% 100 ML (15:00)
[2018-05-13] MEDS: POLYETHYLENE GLYCOL 17 GM PACKET PO (15:04)
[2018-05-13] MEDS: ACETAMINOPHEN 325 MG TAB PO (16:24)
[2018-05-13] MEDS ORDERED: TPN 1,000 ML IV (17:19)
[2018-05-13] MEDS: HYDROCODONE/APAP (5/325) TAB PO (18:09)
[2018-05-13] MEDS ORDERED: ACCU-CHEK XX (21:00)
[2018-05-14] MEDS: CLINDAMYCIN 300 MG CAP PO ×4 (00:07→17:06)
[2018-05-14] MEDS: morphine 2 MG INJ IV ×5 (02:22→21:10)
[2018-05-14 07:05] LABS: ADD MAN DIFF? NO
[2018-05-14 07:07] LABS: WHITE BLOOD COUNT 5.1 10^3/ul (4.8-10.8)
[2018-05-14 07:07] LABS: BASOPHILS % 0.2 % (0.0-2.0); EOSINOPHILS # 0.1 10^3/ul (0.0-0.5); EOSINOPHILS % 2.4 % (0.0-7.0); HEMATOCRIT 33.2 % (37.0-47.0); HEMOGLOBIN 10.8 g/dl (12.0-16.0); LYMPHOCYTES # 1.9 10^3/ul (0.8-2.9); LYMPHOCYTES % 36.8 % (15.0-51.0); MEAN CORPUSCULAR HEMOGLOBIN 31.2 pg (29.0-33.0); MEAN CORPUSCULAR HGB CONC 32.5 g/dl (32.0-37.0); MONOCYTE # 0.4 10^3/ul (0.3-0.9); MONOCYTES % 7.5 % (0.0-11.0); NEUTROPHIL # 2.7 10^3/ul (1.6-7.5); NEUTROPHILS % 52.9 % (39.0-77.0); PLATELET COUNT 292 10^3/UL (140-415); RED BLOOD COUNT 3.46 10^6/ul (4.20-5.40); RED CELL DISTRIBUTION WIDTH 15.7 % (11.5-14.5)
[2018-05-14 07:44] LABS: BLOOD UREA NITROGEN 19 mg/dl (7-20); CALCIUM 9.5 mg/dl (8.4-10.2); CARBON DIOXIDE 31 mmol/L (21-31); CHLORIDE 101 mmol/L (97-110); CREATININE 0.52 mg/dl (0.44-1.00); GLUCOSE 85 mg/dl (70-220); MAGNESIUM 1.4 mg/dl (1.7-2.5); PHOSPHORUS 4.7 mg/dl (2.5-4.9); POTASSIUM 3.4 mmol/L (3.5-5.1); SODIUM 138 mmol/L (135-144)
[2018-05-14 07:46] LABS: TRIGLYCERIDES 134 mg/dl (0-149)
[2018-05-14] MEDS: POLYETHYLENE GLYCOL 17 GM PACKET PO (09:00)
[2018-05-14] MEDS: SENNA TAB PO ×2 (09:00→21:07)
[2018-05-14] MEDS: ENOXAPARIN 40 MG/0.4 ML SYG SC (09:00)
[2018-05-14 09:08] LABS: ANION GAP 8 (5-13)
[2018-05-14 09:49] LABS: ANION GAP 6 (5-13)
[2018-05-14] MEDS: POTASSIUM CHLORIDE 20 MEQ POWDER FOR ORAL SOLN PO (10:27)
[2018-05-14] MEDS: MAGNESIUM SULFATE 4 GM/100 ML 100 ML IVPB (11:52)
[2018-05-14] MEDS: HYDROCORTISONE 2.5% 30 GM RECT CR PR (14:31)
[2018-05-14] MEDS: TPN 1,000 ML IV (20:00)
[2018-05-14] MEDS: ACCU-CHEK XX (21:00)
[2018-05-15] MEDS: ACCU-CHEK XX ×6 (01:00→20:24)
[2018-05-15] MEDS: CLINDAMYCIN 300 MG CAP PO ×4 (01:07→17:34)
[2018-05-15] MEDS: morphine 2 MG INJ IV ×5 (01:16→20:13)
[2018-05-15] MEDS: LORAZEPAM 2 MG INJ IV (02:13)
[2018-05-15] MEDS: HYDROCORTISONE 2.5% 30 GM RECT CR PR (08:02)
[2018-05-15] MEDS: ENOXAPARIN 40 MG/0.4 ML SYG SC (08:07)
[2018-05-15 08:12] LABS: ANION GAP 5 (5-13); BLOOD UREA NITROGEN 25 mg/dl (7-20); CALCIUM 9.4 mg/dl (8.4-10.2); CARBON DIOXIDE 32 mmol/L (21-31); CHLORIDE 99 mmol/L (97-110); CREATININE 0.51 mg/dl (0.44-1.00); GLUCOSE 107 mg/dl (70-220); MAGNESIUM 1.6 mg/dl (1.7-2.5); PHOSPHORUS 4.4 mg/dl (2.5-4.9); POTASSIUM 3.4 mmol/L (3.5-5.1); SODIUM 136 mmol/L (135-144)
[2018-05-15] MEDS: FAT EMULSION 20% 250 ML IV ×2 (08:12→09:37)
[2018-05-15] MEDS: POLYETHYLENE GLYCOL 17 GM PACKET PO (08:13)
[2018-05-15] MEDS: SENNA TAB PO ×2 (08:13→20:12)
[2018-05-15 08:43] LABS: PREALBUMIN 23.1 mg/dl (17.6-36.0)
[2018-05-15] MEDS: TPN 1,000 ML IV (10:44)
[2018-05-15] MEDS: MAGNESIUM SULFATE 1 GM/D5W 100 ML IVPB (10:45)
[2018-05-15] MEDS: POTASSIUM CHLORIDE 50 ML IVPB ×2 (10:45→12:04)
[2018-05-15] MEDS: LORAZEPAM 1 MG TAB PO (17:33)
== END 2018-05-15 21:40 | disposition home or self-care (01) | DRG 394 ==
LOC: E/R 17:16 → PP2 19:03
PROC: 02HV33Z Insertion of Infusion Device into Superior Vena Cava, Percutaneous Approach (ICD-10-PCS; principal; 2018-05-13)
PROC: 3E0436Z Introduction of Nutritional Substance into Central Vein, Percutaneous Approach (ICD-10-PCS; 2018-05-15)
DX: K91.89 Other postprocedural complications and disorders of digestive system (principal); K63.2 Fistula of intestine; E44.0 Moderate protein-calorie malnutrition; C56.9 Malignant neoplasm of unspecified ovary; Z68.1 Body mass index [BMI] 19.9 or less, adult; F41.9 Anxiety disorder, unspecified; F32.9 Major depressive disorder, single episode, unspecified; I10 Essential (primary) hypertension; K59.00 Constipation, unspecified; Z90.49 Acquired absence of other specified parts of digestive tract; Z87.891 Personal history of nicotine dependence; Z79.899 Other long term (current) drug therapy
CPT/HCPCS: 36415; 36569; 71045; 74177; 76937; 80048; 80053; 82962; 83036; 83735; 84100; 84134; 84436; 84478; 84479; 85025; 99285-25

== ENCOUNTER 2018-07-10 13:51 | Emergency (ER) | payer OTHER ==
[2018-07-10] MEDS: IOHEXOL 300MG/ML 150 ML BTL (16:19)
[2018-07-10] MEDS: SOD CHLORIDE 0.9% 100 ML (16:19)
[2018-07-10] MEDS: morphine 4 MG/ML VIAL IV ×2 (17:12→19:25)
[2018-07-10] MEDS: BARIUM SULF 2% 450 ML BTL (BERRY SMOOTHIE) PO (17:14)
[2018-07-10] MEDS: SOD CHLORIDE 0.9% 1,000 ML IV (17:17)
[2018-07-10 17:26] LABS: ADD MAN DIFF? NO
[2018-07-10 17:30] LABS: WHITE BLOOD COUNT 7.6 10^3/ul (4.8-10.8)
[2018-07-10 17:30] LABS: BASOPHILS % 0.1 % (0.0-2.0); EOSINOPHILS % 0.4 % (0.0-7.0); HEMATOCRIT 37.6 % (37.0-47.0); HEMOGLOBIN 12.9 g/dl (12.0-16.0); LYMPHOCYTES # 1.4 10^3/ul (0.8-2.9); LYMPHOCYTES % 18.1 % (15.0-51.0); MEAN CORPUSCULAR HEMOGLOBIN 31.4 pg (29.0-33.0); MEAN CORPUSCULAR HGB CONC 34.3 g/dl (32.0-37.0); MEAN CORPUSCULAR VOLUME 91.5 fl (82.0-101.0); MONOCYTE # 0.2 10^3/ul (0.3-0.9); NEUTROPHIL # 5.9 10^3/ul (1.6-7.5); NEUTROPHILS % 78.1 % (39.0-77.0); PLATELET COUNT 306 10^3/UL (140-415); RED BLOOD COUNT 4.11 10^6/ul (4.20-5.40); RED CELL DISTRIBUTION WIDTH 12.5 % (11.5-14.5)
[2018-07-10 17:47] LABS: ALANINE AMINOTRANSFERASE 25 IU/L (13-69); ALBUMIN 4.4 g/dl (3.3-4.9); ALBUMIN/GLOBULIN RATIO 1.25; ALKALINE PHOSPHATASE 81 IU/L (42-121); ANION GAP 11 (5-13); ASPARTATE AMINO TRANSFERASE 27 IU/L (15-46); BILIRUBIN,INDIRECT 0.3 mg/dl (0-1.1); BILIRUBIN,TOTAL 0.3 mg/dl (0.2-1.3); BLOOD UREA NITROGEN 22 mg/dl (7-20); CALCIUM 9.9 mg/dl (8.4-10.2); CARBON DIOXIDE 33 mmol/L (21-31); CHLORIDE 96 mmol/L (97-110); CREATININE 0.56 mg/dl (0.44-1.00); Estimated GFR > 60 mL/min (>60); GLUCOSE 125 mg/dl (70-220); LIPASE 134 U/L (23-300); POTASSIUM 3.3 mmol/L (3.5-5.1); SODIUM 140 mmol/L (135-144); TOTAL PROTEIN 7.9 g/dl (6.1-8.1)
[2018-07-10 17:49] LABS: INR 0.89; PROTIME 12.1 Sec (11.9-14.9); PT RATIO 0.9
[2018-07-10 17:59] LABS: TROPONIN-I < 0.012 ng/ml (0.000-0.120)
[2018-07-10 18:31] LABS: ADD UMIC NO; UR ASCORBIC ACID NEGATIVE (NEGATIVE); UR BILIRUBIN (Dip) NEGATIVE (NEGATIVE); UR BLOOD (Dip) NEGATIVE (NEGATIVE); UR CLARITY CLEAR (CLEAR); UR COLOR STRAW (YELLOW); UR GLUCOSE (Dip) NEGATIVE (NEGATIVE); UR KETONES (Dip) NEGATIVE (NEGATIVE); UR LEUKOCYTE ESTERASE (Dip) NEGATIVE Leu/ul (NEGATIVE); UR NITRITE (Dip) NEGATIVE (NEGATIVE); UR SPECIFIC GRAVITY (Dip) 1.009 (1.003-1.030); UR TOTAL PROTEIN (Dip) NEGATIVE (NEGATIVE); UR UROBILINOGEN (Dip) NEGATIVE (NEGATIVE)
[2018-07-10] MEDS ORDERED: morphine 4 MG/ML VIAL IV (18:41)
[2018-07-10] MEDS: ONDANSETRON 4 MG INJ IV (19:24)
== END 2018-07-10 20:02 | disposition home or self-care (01) ==
LOC: E/R 13:51
DX: K63.2 Fistula of intestine (principal); L53.9 Erythematous condition, unspecified
CPT/HCPCS: 36415; 74177; 80053; 81003; 83690; 84484; 85025; 85610; 85730; 96374; 96375; 96376; 99285-25

== ENCOUNTER 2019-03-25 10:59 | Day surgery (SDC) | payer OTHER ==
[2019-03-25] MEDS ORDERED: PROPOFOL 20 ML ×2 (14:48→15:23)
== END 2019-03-25 17:11 | disposition home or self-care (01) ==
LOC: GIL 10:59
DX: K64.8 Other hemorrhoids (principal)
CPT/HCPCS: 45380; 88305